=== PATIENT | male | born 1935 | race Caucasian/White ===

== ENCOUNTER 2017-09-09 14:37 | Inpatient (IN) | payer MEDICARE ==
[2017-09-09] MEDS ORDERED: Promethazine HCl 25 MG/ML VIAL IM PRN (17:55)
[2017-09-09] MEDS ORDERED: Ondansetron ODT 4 MG TAB PO PRN (17:55)
[2017-09-09] MEDS: Scopolamine 1.5 mg/72 hour Patch TD SCH (20:05)
[2017-09-09] MEDS: Acetaminophen 500 MG TAB PO PRN (20:07)
[2017-09-09] MEDS: Senokot S 8.6-50 MG TAB PO SCH (22:11)
[2017-09-10] MEDS: Levothyroxine Sodium 50 MCG TAB PO SCH (05:58)
[2017-09-10] MEDS ORDERED: predniSONE 20 MG TAB PO SCH (08:00)
[2017-09-10] MEDS: Senokot S 8.6-50 MG TAB PO SCH ×2 (10:13→22:05)
[2017-09-10] MEDS: Tamsulosin HCl 0.4 MG CAP PO SCH (10:13)
[2017-09-10] MEDS: Ascorbic Acid 500 mg Chewable Tablet PO SCH (10:13)
[2017-09-10] MEDS: Cyanocobalamin (Vitamin B-12) 1,000 MCG TAB PO SCH (10:13)
[2017-09-10] MEDS: Amlodipine 10 MG TAB PO SCH (10:14)
[2017-09-10] MEDS: Folic Acid 1 MG TAB PO SCH (10:18)
[2017-09-10] MEDS: predniSONE 20 MG TAB PO SCH (10:18)
[2017-09-10] MEDS: Saccharomyces boulardii 250 MG CAP PO SCH (10:19)
[2017-09-10] MEDS: Enoxaparin Sodium 40 MG/0.4 ML SYRINGE SC SCH (10:19)
[2017-09-10] MEDS: Dutasteride 0.5 MG CAP PO SCH ×2 (14:31→14:34)
[2017-09-10] MEDS ORDERED: Fluconazole 100 MG TAB PO SCH (15:30)
[2017-09-10] MEDS: Nystatin Cream 15 GM TUBE TOP SCH (22:04)
[2017-09-11] MEDS: Levothyroxine Sodium 50 MCG TAB PO SCH (06:37)
[2017-09-11] MEDS: predniSONE 20 MG TAB PO SCH (09:43)
[2017-09-11] MEDS: Amlodipine 10 MG TAB PO SCH (09:43)
[2017-09-11] MEDS: Cyanocobalamin (Vitamin B-12) 1,000 MCG TAB PO SCH (09:44)
[2017-09-11] MEDS: Ascorbic Acid 500 mg Chewable Tablet PO SCH (09:44)
[2017-09-11] MEDS: Fluconazole 100 MG TAB PO SCH (09:45)
[2017-09-11] MEDS: Dutasteride 0.5 MG CAP PO SCH (09:45)
[2017-09-11] MEDS: Folic Acid 1 MG TAB PO SCH (09:45)
[2017-09-11] MEDS: Senokot S 8.6-50 MG TAB PO SCH ×2 (09:46→21:11)
[2017-09-11] MEDS: Saccharomyces boulardii 250 MG CAP PO SCH (09:46)
[2017-09-11] MEDS: Tamsulosin HCl 0.4 MG CAP PO SCH (09:46)
[2017-09-11] MEDS: Enoxaparin Sodium 40 MG/0.4 ML SYRINGE SC SCH (09:47)
[2017-09-11] MEDS: Nystatin Cream 15 GM TUBE TOP SCH ×2 (09:47→21:11)
[2017-09-12 05:29] LABS: #Basophils 0.1 thou/uL (0.0-0.2); #Eosinphils 0.1 thou/uL (0.0-0.7); #Lymphocytes 1.2 thou/uL (1.20-3.40); #Monocytes 0.8 thou/uL (0.11-0.59); %Basophils 0.9 % (0.0-1.0); %Eosinophils 0.5 % (0.0-10.0); %Lymphocytes 8.3 % (21.0-51.0); %Monocytes 5.5 % (0.0-10.0); %Neutrophils 84.9 % (42.0-75.0); Hemoglobin 11.2 g/dL (14.0-18.0); Mean Corpuscular HGB CONC 33.5 g/dL (32.0-36.0); Mean Corpuscular Volume 95.6 fl (80.0-94.0); Mean Platelet Volume 4.9 fL (7.4-10.4); Platelet Count 208 thou/uL (130-400); RBC Distribution Width 15.6 % (11.5-14.5); Red Blood Cell (RBC) Count 3.51 mill/uL (4.70-6.10); White Blood Cell (WBC) Count 14.2 thou/uL (4.8-10.8)
[2017-09-12 05:45] LABS: ALT (SGPT) 10 U/L (8-55); AST (SGOT) 11 U/L (5-34); Albumin 3.1 g/dL (3.4-4.8); Alkaline Phosphatase 98 U/L (40-150); Anion Gap 15 mmol/L (10-20); BUN (Urea Nitrogen) 19 mg/dL (8.4-25.7); Bilirubin, Total 0.8 mg/dL (0.2-1.2); Calc. Creatinine Clearance 92 mL/min (70-130); Calcium 8.3 mg/dL (7.8-10.44); Carbon Dioxide 19 mmol/L (23-31); Chloride 103 mmol/L (98-107); Estimated GFR-MDRD Greater than 90; Globulin 2.2 g/dL (2.4-3.5); Glucose 98 mg/dL (83-110); Protein, Total 5.3 g/dL (5.8-8.1); Sodium 133 mmol/L (136-145)
[2017-09-12] MEDS: Levothyroxine Sodium 50 MCG TAB PO SCH (06:30)
[2017-09-12] MEDS: Enoxaparin Sodium 40 MG/0.4 ML SYRINGE SC SCH (09:11)
[2017-09-12] MEDS: Nystatin Cream 15 GM TUBE TOP SCH ×2 (09:11→22:24)
[2017-09-12] MEDS: Tamsulosin HCl 0.4 MG CAP PO SCH (09:12)
[2017-09-12] MEDS: Senokot S 8.6-50 MG TAB PO SCH ×2 (09:12→22:23)
[2017-09-12] MEDS: Saccharomyces boulardii 250 MG CAP PO SCH (09:13)
[2017-09-12] MEDS: Cyanocobalamin (Vitamin B-12) 1,000 MCG TAB PO SCH (09:13)
[2017-09-12] MEDS: Amlodipine 10 MG TAB PO SCH (09:13)
[2017-09-12] MEDS: Ascorbic Acid 500 mg Chewable Tablet PO SCH (09:14)
[2017-09-12] MEDS: predniSONE 20 MG TAB PO SCH (09:14)
[2017-09-12] MEDS: Fluconazole 100 MG TAB PO SCH (09:15)
[2017-09-12] MEDS: Dutasteride 0.5 MG CAP PO SCH (09:15)
[2017-09-12] MEDS: Folic Acid 1 MG TAB PO SCH (09:32)
[2017-09-12] MEDS: Scopolamine 1.5 mg/72 hour Patch TD SCH (18:48)
[2017-09-13] MEDS: Levothyroxine Sodium 50 MCG TAB PO SCH (06:05)
[2017-09-13] MEDS: Senokot S 8.6-50 MG TAB PO SCH ×2 (09:02→22:53)
[2017-09-13] MEDS: Folic Acid 1 MG TAB PO SCH (09:02)
[2017-09-13] MEDS: Enoxaparin Sodium 40 MG/0.4 ML SYRINGE SC SCH (09:02)
[2017-09-13] MEDS: Tamsulosin HCl 0.4 MG CAP PO SCH (09:03)
[2017-09-13] MEDS: Cyanocobalamin (Vitamin B-12) 1,000 MCG TAB PO SCH (09:03)
[2017-09-13] MEDS: Dutasteride 0.5 MG CAP PO SCH (09:03)
[2017-09-13] MEDS: Fluconazole 100 MG TAB PO SCH (09:03)
[2017-09-13] MEDS: Amlodipine 10 MG TAB PO SCH (09:03)
[2017-09-13] MEDS: predniSONE 20 MG TAB PO SCH (09:03)
[2017-09-13] MEDS: Ascorbic Acid 500 mg Chewable Tablet PO SCH (09:04)
[2017-09-13] MEDS: Nystatin Cream 15 GM TUBE TOP SCH ×2 (09:04→23:00)
[2017-09-13] MEDS: Saccharomyces boulardii 250 MG CAP PO SCH (09:04)
[2017-09-13] MEDS: Nystatin 500,000 UNITS/5 ML UDCUP SSW SCH ×2 (16:02→22:52)
--- NOTE | 2017-09-13 19:34 | RAD ---
PORTABLE CHEST: 09/13/17 An AP portable film at 0917 is compared with a 09/01/17 study. Mild cardiomegaly is about the same. There are no congestive changes or large pleural effusions today . The lungs are clear today than before. There is perhaps a little residual haziness in the right duane g base, but it still presents an improvement over time. The upper lobes are clear. IMPRESSION: Overall improvement since 09/01. POS: HOME
[2017-09-13] MEDS: Doxycycline Hyclate 100 MG TAB PO SCH (22:52)
[2017-09-13] MEDS: guaiFENesin ER 600 MG TAB PO SCH (22:53)
[2017-09-14] MEDS: Levothyroxine Sodium 50 MCG TAB PO SCH (06:50)
[2017-09-14] MEDS: Nystatin Cream 15 GM TUBE TOP SCH ×2 (09:27→22:50)
[2017-09-14] MEDS: Nystatin 500,000 UNITS/5 ML UDCUP SSW SCH ×4 (09:28→22:50)
[2017-09-14] MEDS: Saccharomyces boulardii 250 MG CAP PO SCH (09:28)
[2017-09-14] MEDS: Senokot S 8.6-50 MG TAB PO SCH ×2 (09:28→22:50)
[2017-09-14] MEDS: Enoxaparin Sodium 40 MG/0.4 ML SYRINGE SC SCH (09:28)
[2017-09-14] MEDS: Doxycycline Hyclate 100 MG TAB PO SCH ×2 (09:29→22:50)
[2017-09-14] MEDS: guaiFENesin ER 600 MG TAB PO SCH ×2 (09:29→22:50)
[2017-09-14] MEDS: Amlodipine 10 MG TAB PO SCH (09:29)
[2017-09-14] MEDS: Folic Acid 1 MG TAB PO SCH (09:29)
[2017-09-14] MEDS: Dutasteride 0.5 MG CAP PO SCH (09:30)
[2017-09-14] MEDS: predniSONE 20 MG TAB PO SCH (09:30)
[2017-09-14] MEDS: Tamsulosin HCl 0.4 MG CAP PO SCH (09:30)
[2017-09-14] MEDS: Ascorbic Acid 500 mg Chewable Tablet PO SCH (09:32)
[2017-09-14] MEDS: Cyanocobalamin (Vitamin B-12) 1,000 MCG TAB PO SCH (09:32)
[2017-09-14] MEDS: Fluconazole 100 MG TAB PO SCH (09:33)
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
[2017-09-15 05:29] LABS: Hemoglobin 11.7 g/dL (14.0-18.0); Platelet Count 200 thou/uL (130-400)
[2017-09-15 05:31] LABS: Calc. Creatinine Clearance 82 mL/min (70-130); Estimated GFR-MDRD Greater than 90
[2017-09-15] MEDS: Levothyroxine Sodium 50 MCG TAB PO SCH (06:08)
[2017-09-15] MEDS: predniSONE 20 MG TAB PO SCH (09:30)
[2017-09-15] MEDS: Amlodipine 10 MG TAB PO SCH (09:31)
[2017-09-15] MEDS: Doxycycline Hyclate 100 MG TAB PO SCH ×2 (09:31→23:25)
[2017-09-15] MEDS: Dutasteride 0.5 MG CAP PO SCH (09:32)
[2017-09-15] MEDS: Enoxaparin Sodium 40 MG/0.4 ML SYRINGE SC SCH (09:32)
[2017-09-15] MEDS: Fluconazole 100 MG TAB PO SCH (09:33)
[2017-09-15] MEDS: Nystatin 500,000 UNITS/5 ML UDCUP SSW SCH ×6 (09:33→23:30)
[2017-09-15] MEDS: guaiFENesin ER 600 MG TAB PO SCH ×2 (09:33→23:25)
[2017-09-15] MEDS: Senokot S 8.6-50 MG TAB PO SCH ×2 (09:34→23:25)
[2017-09-15] MEDS: Tamsulosin HCl 0.4 MG CAP PO SCH (09:34)
[2017-09-15] MEDS: Saccharomyces boulardii 250 MG CAP PO SCH (09:34)
[2017-09-15] MEDS: Acetaminophen 500 MG TAB PO PRN (09:46)
[2017-09-15] MEDS: Cyanocobalamin (Vitamin B-12) 1,000 MCG TAB PO SCH (09:46)
[2017-09-15] MEDS: Ascorbic Acid 500 mg Chewable Tablet PO SCH (09:47)
[2017-09-15] MEDS: Folic Acid 1 MG TAB PO SCH (09:47)
[2017-09-15] MEDS: Nystatin Cream 15 GM TUBE TOP SCH ×2 (09:50→23:30)
[2017-09-15] MEDS: Scopolamine 1.5 mg/72 hour Patch TD SCH (18:28)
[2017-09-16] MEDS: Levothyroxine Sodium 50 MCG TAB PO SCH (06:19)
[2017-09-16] MEDS: Amlodipine 10 MG TAB PO SCH (10:20)
[2017-09-16] MEDS: Tamsulosin HCl 0.4 MG CAP PO SCH (10:21)
[2017-09-16] MEDS: Doxycycline Hyclate 100 MG TAB PO SCH ×2 (10:21→23:44)
[2017-09-16] MEDS: Ascorbic Acid 500 mg Chewable Tablet PO SCH (10:21)
[2017-09-16] MEDS: Cyanocobalamin (Vitamin B-12) 1,000 MCG TAB PO SCH (10:22)
[2017-09-16] MEDS: Dutasteride 0.5 MG CAP PO SCH (10:22)
[2017-09-16] MEDS: Folic Acid 1 MG TAB PO SCH (10:22)
[2017-09-16] MEDS: guaiFENesin ER 600 MG TAB PO SCH ×2 (10:22→23:44)
[2017-09-16] MEDS: Senokot S 8.6-50 MG TAB PO SCH ×2 (10:22→23:44)
[2017-09-16] MEDS: Saccharomyces boulardii 250 MG CAP PO SCH (10:23)
[2017-09-16] MEDS: predniSONE 20 MG TAB PO SCH (10:23)
[2017-09-16] MEDS: Nystatin 500,000 UNITS/5 ML UDCUP SSW SCH ×4 (10:24→23:51)
[2017-09-16] MEDS: Fluconazole 100 MG TAB PO SCH (10:25)
[2017-09-16] MEDS: Enoxaparin Sodium 40 MG/0.4 ML SYRINGE SC SCH (10:25)
[2017-09-16] MEDS: Nystatin Cream 15 GM TUBE TOP SCH ×2 (10:27→23:51)
[2017-09-17] MEDS: Acetaminophen 500 MG TAB PO PRN (04:22)
[2017-09-17 05:32] LABS: Hemoglobin 11.6 g/dL (14.0-18.0); Platelet Count 206 thou/uL (130-400)
[2017-09-17 05:36] LABS: Calc. Creatinine Clearance 84 mL/min (70-130); Estimated GFR-MDRD Greater than 90
[2017-09-17] MEDS: Levothyroxine Sodium 50 MCG TAB PO SCH (06:15)
[2017-09-17] MEDS: Folic Acid 1 MG TAB PO SCH (10:25)
[2017-09-17] MEDS: guaiFENesin ER 600 MG TAB PO SCH ×2 (10:25→21:21)
[2017-09-17] MEDS: Nystatin 500,000 UNITS/5 ML UDCUP SSW SCH ×4 (10:25→21:20)
[2017-09-17] MEDS: Ascorbic Acid 500 mg Chewable Tablet PO SCH (10:25)
[2017-09-17] MEDS: predniSONE 20 MG TAB PO SCH (10:25)
[2017-09-17] MEDS: Tamsulosin HCl 0.4 MG CAP PO SCH (10:26)
[2017-09-17] MEDS: Cyanocobalamin (Vitamin B-12) 1,000 MCG TAB PO SCH (10:26)
[2017-09-17] MEDS: Doxycycline Hyclate 100 MG TAB PO SCH ×2 (10:26→21:21)
[2017-09-17] MEDS: Senokot S 8.6-50 MG TAB PO SCH ×2 (10:26→21:21)
[2017-09-17] MEDS: Amlodipine 10 MG TAB PO SCH (10:27)
[2017-09-17] MEDS: Dutasteride 0.5 MG CAP PO SCH (10:27)
[2017-09-17] MEDS: Enoxaparin Sodium 40 MG/0.4 ML SYRINGE SC SCH (10:28)
[2017-09-17] MEDS: Saccharomyces boulardii 250 MG CAP PO SCH (10:28)
[2017-09-17] MEDS: Nystatin Cream 15 GM TUBE TOP SCH ×2 (10:29→21:21)
[2017-09-17] MEDS ORDERED: Docusate 100 MG CAP PO PRN (17:00)
[2017-09-17] MEDS: Polyethylene Glycol 3350 17 GM Packet PO PRN (18:46)
[2017-09-18] MEDS: Levothyroxine Sodium 50 MCG TAB PO SCH (05:56)
[2017-09-18] MEDS: Nystatin 500,000 UNITS/5 ML UDCUP SSW SCH ×4 (09:31→21:31)
[2017-09-18] MEDS: Cyanocobalamin (Vitamin B-12) 1,000 MCG TAB PO SCH (09:31)
[2017-09-18] MEDS: Saccharomyces boulardii 250 MG CAP PO SCH (09:31)
[2017-09-18] MEDS: Dutasteride 0.5 MG CAP PO SCH (09:31)
[2017-09-18] MEDS: Folic Acid 1 MG TAB PO SCH (09:32)
[2017-09-18] MEDS: Ascorbic Acid 500 mg Chewable Tablet PO SCH (09:32)
[2017-09-18] MEDS: Doxycycline Hyclate 100 MG TAB PO SCH ×2 (09:32→21:30)
[2017-09-18] MEDS: guaiFENesin ER 600 MG TAB PO SCH ×2 (09:32→21:29)
[2017-09-18] MEDS: Tamsulosin HCl 0.4 MG CAP PO SCH (09:32)
[2017-09-18] MEDS: Senokot S 8.6-50 MG TAB PO SCH ×2 (09:32→21:30)
[2017-09-18] MEDS: Nystatin Cream 15 GM TUBE TOP SCH ×2 (09:33→21:34)
[2017-09-18] MEDS: Enoxaparin Sodium 40 MG/0.4 ML SYRINGE SC SCH (09:34)
[2017-09-18] MEDS: Amlodipine 10 MG TAB PO SCH (10:13)
[2017-09-18] MEDS: Scopolamine 1.5 mg/72 hour Patch TD SCH (18:02)
[2017-09-19] MEDS: Levothyroxine Sodium 50 MCG TAB PO SCH (05:54)
[2017-09-19 06:04] LABS: Hemoglobin 12.8 g/dL (14.0-18.0); Platelet Count 231 thou/uL (130-400)
[2017-09-19 06:09] LABS: Calc. Creatinine Clearance 80 mL/min (70-130); Estimated GFR-MDRD Greater than 90
[2017-09-19] MEDS: Nystatin 500,000 UNITS/5 ML UDCUP SSW SCH ×4 (10:12→20:38)
[2017-09-19] MEDS: Senokot S 8.6-50 MG TAB PO SCH ×2 (10:12→20:38)
[2017-09-19] MEDS: Enoxaparin Sodium 40 MG/0.4 ML SYRINGE SC SCH (10:12)
[2017-09-19] MEDS: Tamsulosin HCl 0.4 MG CAP PO SCH (10:13)
[2017-09-19] MEDS: Dutasteride 0.5 MG CAP PO SCH (10:13)
[2017-09-19] MEDS: guaiFENesin ER 600 MG TAB PO SCH ×2 (10:13→20:38)
[2017-09-19] MEDS: Folic Acid 1 MG TAB PO SCH (10:13)
[2017-09-19] MEDS: Amlodipine 10 MG TAB PO SCH (10:13)
[2017-09-19] MEDS: Doxycycline Hyclate 100 MG TAB PO SCH ×2 (10:13→20:38)
[2017-09-19] MEDS: Cyanocobalamin (Vitamin B-12) 1,000 MCG TAB PO SCH (10:14)
[2017-09-19] MEDS: Ascorbic Acid 500 mg Chewable Tablet PO SCH (10:15)
[2017-09-19] MEDS: Nystatin Cream 15 GM TUBE TOP SCH ×2 (10:16→20:40)
[2017-09-19] MEDS: Saccharomyces boulardii 250 MG CAP PO SCH (10:16)
[2017-09-19] MEDS: Polyethylene Glycol 3350 17 GM Packet PO PRN (10:24)
[2017-09-19] MEDS: Calcium Carbonate 500 MG ChewTAB PO SCH (20:38)
[2017-09-20] MEDS: Levothyroxine Sodium 50 MCG TAB PO SCH (06:31)
[2017-09-20] MEDS: Nystatin 500,000 UNITS/5 ML UDCUP SSW SCH ×4 (09:12→21:26)
[2017-09-20] MEDS: Nystatin Cream 15 GM TUBE TOP SCH (09:12)
[2017-09-20] MEDS: Enoxaparin Sodium 40 MG/0.4 ML SYRINGE SC SCH (09:12)
[2017-09-20] MEDS: Doxycycline Hyclate 100 MG TAB PO SCH ×2 (09:13→21:25)
[2017-09-20] MEDS: Ascorbic Acid 500 mg Chewable Tablet PO SCH ×2 (09:13→18:39)
[2017-09-20] MEDS: Cyanocobalamin (Vitamin B-12) 1,000 MCG TAB PO SCH ×2 (09:13→18:39)
[2017-09-20] MEDS: Saccharomyces boulardii 250 MG CAP PO SCH (09:13)
[2017-09-20] MEDS: Senokot S 8.6-50 MG TAB PO SCH ×2 (09:14→21:25)
[2017-09-20] MEDS: Tamsulosin HCl 0.4 MG CAP PO SCH (09:14)
[2017-09-20] MEDS: guaiFENesin ER 600 MG TAB PO SCH ×2 (09:14→21:25)
[2017-09-20] MEDS: Dutasteride 0.5 MG CAP PO SCH (09:14)
[2017-09-20] MEDS: Amlodipine 10 MG TAB PO SCH (09:14)
[2017-09-20] MEDS: Folic Acid 1 MG TAB PO SCH (09:15)
[2017-09-20] MEDS: Calcium Carbonate 500 MG ChewTAB PO SCH ×2 (09:15→21:25)
[2017-09-20] MEDS: Acetaminophen 500 MG TAB PO PRN (13:14)
[2017-09-21] MEDS: Levothyroxine Sodium 50 MCG TAB PO SCH (06:47)
[2017-09-21 06:52] LABS: Calc. Creatinine Clearance 76 mL/min (70-130); Estimated GFR-MDRD Greater than 90
[2017-09-21 07:15] LABS: Hemoglobin 12.1 g/dL (14.0-18.0); Platelet Count 212 thou/uL (130-400)
[2017-09-21] MEDS: Nystatin 500,000 UNITS/5 ML UDCUP SSW SCH ×5 (08:38→20:37)
[2017-09-21] MEDS: Enoxaparin Sodium 40 MG/0.4 ML SYRINGE SC SCH (08:38)
[2017-09-21] MEDS: Folic Acid 1 MG TAB PO SCH (08:39)
[2017-09-21] MEDS: Saccharomyces boulardii 250 MG CAP PO SCH (08:39)
[2017-09-21] MEDS: Senokot S 8.6-50 MG TAB PO SCH ×2 (08:39→20:36)
[2017-09-21] MEDS: Amlodipine 10 MG TAB PO SCH (08:39)
[2017-09-21] MEDS: Doxycycline Hyclate 100 MG TAB PO SCH ×2 (08:39→20:36)
[2017-09-21] MEDS: Dutasteride 0.5 MG CAP PO SCH (08:40)
[2017-09-21] MEDS: Calcium Carbonate 500 MG ChewTAB PO SCH ×2 (08:40→20:36)
[2017-09-21] MEDS: Tamsulosin HCl 0.4 MG CAP PO SCH (08:40)
[2017-09-21] MEDS: Cyanocobalamin (Vitamin B-12) 1,000 MCG TAB PO SCH (08:41)
[2017-09-21] MEDS: Ascorbic Acid 500 mg Chewable Tablet PO SCH (08:42)
[2017-09-21] MEDS: Scopolamine 1.5 mg/72 hour Patch TD SCH (18:03)
[2017-09-22] MEDS: Levothyroxine Sodium 50 MCG TAB PO SCH (06:06)
[2017-09-22] MEDS: Nystatin 500,000 UNITS/5 ML UDCUP SSW SCH ×4 (09:32→20:56)
[2017-09-22] MEDS: Saccharomyces boulardii 250 MG CAP PO SCH (09:32)
[2017-09-22] MEDS: Amlodipine 10 MG TAB PO SCH (09:32)
[2017-09-22] MEDS: Enoxaparin Sodium 40 MG/0.4 ML SYRINGE SC SCH (09:32)
[2017-09-22] MEDS: Senokot S 8.6-50 MG TAB PO SCH ×2 (09:32→20:56)
[2017-09-22] MEDS: Dutasteride 0.5 MG CAP PO SCH (09:33)
[2017-09-22] MEDS: Tamsulosin HCl 0.4 MG CAP PO SCH (09:33)
[2017-09-22] MEDS: Doxycycline Hyclate 100 MG TAB PO SCH ×2 (09:33→20:56)
[2017-09-22] MEDS: Folic Acid 1 MG TAB PO SCH (09:33)
[2017-09-22] MEDS: Ascorbic Acid 500 mg Chewable Tablet PO SCH (10:43)
[2017-09-22] MEDS: Cyanocobalamin (Vitamin B-12) 1,000 MCG TAB PO SCH (10:44)
[2017-09-22] MEDS: Calcium Carbonate 500 MG ChewTAB PO SCH ×2 (10:44→20:56)
[2017-09-23] MEDS: Levothyroxine Sodium 50 MCG TAB PO SCH (05:41)
[2017-09-23 06:36] LABS: Hemoglobin 11.9 g/dL (14.0-18.0); Platelet Count 212 thou/uL (130-400)
[2017-09-23 06:45] LABS: Calc. Creatinine Clearance 77 mL/min (70-130); Estimated GFR-MDRD Greater than 90
[2017-09-23] MEDS: Ascorbic Acid 500 mg Chewable Tablet PO SCH (10:00)
[2017-09-23] MEDS: Amlodipine 10 MG TAB PO SCH (10:01)
[2017-09-23] MEDS: Saccharomyces boulardii 250 MG CAP PO SCH (10:02)
[2017-09-23] MEDS: Doxycycline Hyclate 100 MG TAB PO SCH ×2 (10:02→20:43)
[2017-09-23] MEDS: Nystatin 500,000 UNITS/5 ML UDCUP SSW SCH ×3 (10:02→16:19)
[2017-09-23] MEDS: Dutasteride 0.5 MG CAP PO SCH (10:02)
[2017-09-23] MEDS: Senokot S 8.6-50 MG TAB PO SCH ×2 (10:02→20:43)
[2017-09-23] MEDS: Cyanocobalamin (Vitamin B-12) 1,000 MCG TAB PO SCH (10:02)
[2017-09-23] MEDS: Folic Acid 1 MG TAB PO SCH (10:03)
[2017-09-23] MEDS: Tamsulosin HCl 0.4 MG CAP PO SCH (10:03)
[2017-09-23] MEDS: Calcium Carbonate 500 MG ChewTAB PO SCH ×2 (10:04→20:46)
[2017-09-23] MEDS: Enoxaparin Sodium 40 MG/0.4 ML SYRINGE SC SCH (10:04)
[2017-09-24] MEDS: Levothyroxine Sodium 50 MCG TAB PO SCH (06:20)
[2017-09-24] MEDS: Dutasteride 0.5 MG CAP PO SCH (09:20)
[2017-09-24] MEDS: Calcium Carbonate 500 MG ChewTAB PO SCH ×2 (09:20→21:27)
[2017-09-24] MEDS: Cyanocobalamin (Vitamin B-12) 1,000 MCG TAB PO SCH (09:21)
[2017-09-24] MEDS: Ascorbic Acid 500 mg Chewable Tablet PO SCH (09:21)
[2017-09-24] MEDS: Folic Acid 1 MG TAB PO SCH (09:21)
[2017-09-24] MEDS: Saccharomyces boulardii 250 MG CAP PO SCH (09:21)
[2017-09-24] MEDS: Amlodipine 10 MG TAB PO SCH (09:22)
[2017-09-24] MEDS: Senokot S 8.6-50 MG TAB PO SCH ×2 (09:22→21:27)
[2017-09-24] MEDS: Tamsulosin HCl 0.4 MG CAP PO SCH (09:22)
[2017-09-24] MEDS: Enoxaparin Sodium 40 MG/0.4 ML SYRINGE SC SCH (09:23)
[2017-09-25] MEDS: Levothyroxine Sodium 50 MCG TAB PO SCH (05:37)
[2017-09-25 06:19] LABS: Calc. Creatinine Clearance 78 mL/min (70-130); Estimated GFR-MDRD Greater than 90
[2017-09-25 07:19] LABS: Hemoglobin 11.9 g/dL (14.0-18.0); Platelet Count 204 thou/uL (130-400)
[2017-09-25] MEDS: Enoxaparin Sodium 40 MG/0.4 ML SYRINGE SC SCH (08:21)
[2017-09-25] MEDS: Senokot S 8.6-50 MG TAB PO SCH ×2 (08:22→21:58)
[2017-09-25] MEDS: Calcium Carbonate 500 MG ChewTAB PO SCH ×2 (08:22→21:57)
[2017-09-25] MEDS: Amlodipine 10 MG TAB PO SCH (08:23)
[2017-09-25] MEDS: Folic Acid 1 MG TAB PO SCH (08:23)
[2017-09-25] MEDS: Cyanocobalamin (Vitamin B-12) 1,000 MCG TAB PO SCH (08:24)
[2017-09-25] MEDS: Ascorbic Acid 500 mg Chewable Tablet PO SCH (08:24)
[2017-09-25] MEDS: Dutasteride 0.5 MG CAP PO SCH (08:25)
[2017-09-25] MEDS: Saccharomyces boulardii 250 MG CAP PO SCH (08:25)
[2017-09-25] MEDS: Tamsulosin HCl 0.4 MG CAP PO SCH (08:25)
[2017-09-26] MEDS: Levothyroxine Sodium 50 MCG TAB PO SCH (05:56)
[2017-09-26] MEDS: Calcium Carbonate 500 MG ChewTAB PO SCH ×2 (10:17→20:48)
[2017-09-26] MEDS: Amlodipine 10 MG TAB PO SCH (10:18)
[2017-09-26] MEDS: Senokot S 8.6-50 MG TAB PO SCH ×2 (10:18→20:47)
[2017-09-26] MEDS: Folic Acid 1 MG TAB PO SCH (10:18)
[2017-09-26] MEDS: Dutasteride 0.5 MG CAP PO SCH (10:18)
[2017-09-26] MEDS: Tamsulosin HCl 0.4 MG CAP PO SCH (10:18)
[2017-09-26] MEDS: Saccharomyces boulardii 250 MG CAP PO SCH (10:18)
[2017-09-26] MEDS: Cyanocobalamin (Vitamin B-12) 1,000 MCG TAB PO SCH (10:19)
[2017-09-26] MEDS: Ascorbic Acid 500 mg Chewable Tablet PO SCH (10:20)
[2017-09-26] MEDS: Enoxaparin Sodium 40 MG/0.4 ML SYRINGE SC SCH (10:34)
[2017-09-26] MEDS: Acetaminophen 500 MG TAB PO PRN ×2 (17:14→20:56)
[2017-09-27 05:30] LABS: Hemoglobin 11.4 g/dL (14.0-18.0); Platelet Count 185 thou/uL (130-400)
[2017-09-27 05:47] LABS: Calc. Creatinine Clearance 88 mL/min (70-130); Estimated GFR-MDRD Greater than 90
[2017-09-27] MEDS: Levothyroxine Sodium 50 MCG TAB PO SCH (05:52)
[2017-09-27] MEDS: Ascorbic Acid 500 mg Chewable Tablet PO SCH (10:37)
[2017-09-27] MEDS: Cyanocobalamin (Vitamin B-12) 1,000 MCG TAB PO SCH (10:37)
[2017-09-27] MEDS: Calcium Carbonate 500 MG ChewTAB PO SCH ×2 (10:37→21:30)
[2017-09-27] MEDS: Tamsulosin HCl 0.4 MG CAP PO SCH (10:37)
[2017-09-27] MEDS: Saccharomyces boulardii 250 MG CAP PO SCH (10:37)
[2017-09-27] MEDS: Amlodipine 5 MG TAB PO SCH (10:38)
[2017-09-27] MEDS: Dutasteride 0.5 MG CAP PO SCH (10:39)
[2017-09-27] MEDS: Folic Acid 1 MG TAB PO SCH (10:39)
[2017-09-27] MEDS: Enoxaparin Sodium 40 MG/0.4 ML SYRINGE SC SCH (10:39)
[2017-09-27] MEDS: Senokot S 8.6-50 MG TAB PO SCH ×2 (10:39→21:30)
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
[2017-09-27] MEDS: Artificial Tear Sol 15 ML BOT EA EYE PRN (21:30)
[2017-09-28] MEDS: Levothyroxine Sodium 50 MCG TAB PO SCH (06:26)
[2017-09-28] MEDS: Ascorbic Acid 500 mg Chewable Tablet PO SCH (08:37)
[2017-09-28] MEDS: Cyanocobalamin (Vitamin B-12) 1,000 MCG TAB PO SCH (08:37)
[2017-09-28] MEDS: Folic Acid 1 MG TAB PO SCH (08:38)
[2017-09-28] MEDS: Dutasteride 0.5 MG CAP PO SCH (08:38)
[2017-09-28] MEDS: Tamsulosin HCl 0.4 MG CAP PO SCH (08:38)
[2017-09-28] MEDS: Senokot S 8.6-50 MG TAB PO SCH ×2 (08:39→21:39)
[2017-09-28] MEDS: Amlodipine 5 MG TAB PO SCH (08:39)
[2017-09-28] MEDS: Saccharomyces boulardii 250 MG CAP PO SCH (08:40)
[2017-09-28] MEDS: Enoxaparin Sodium 40 MG/0.4 ML SYRINGE SC SCH (08:40)
[2017-09-28] MEDS: Calcium Carbonate 500 MG ChewTAB PO SCH ×2 (08:46→21:39)
[2017-09-28] MEDS: Artificial Tear Sol 15 ML BOT EA EYE PRN (21:39)
[2017-09-29 05:19] LABS: Hemoglobin 11.5 g/dL (14.0-18.0); Platelet Count 188 thou/uL (130-400)
[2017-09-29] MEDS: Levothyroxine Sodium 50 MCG TAB PO SCH (05:35)
[2017-09-29 05:36] LABS: Calc. Creatinine Clearance 76 mL/min (70-130); Estimated GFR-MDRD Greater than 90
[2017-09-29] MEDS: Cyanocobalamin (Vitamin B-12) 1,000 MCG TAB PO SCH (09:20)
[2017-09-29] MEDS: Enoxaparin Sodium 40 MG/0.4 ML SYRINGE SC SCH (09:20)
[2017-09-29] MEDS: Ascorbic Acid 500 mg Chewable Tablet PO SCH (09:21)
[2017-09-29] MEDS: Saccharomyces boulardii 250 MG CAP PO SCH (09:22)
[2017-09-29] MEDS: Folic Acid 1 MG TAB PO SCH (09:22)
[2017-09-29] MEDS: Dutasteride 0.5 MG CAP PO SCH (09:22)
[2017-09-29] MEDS: Amlodipine 5 MG TAB PO SCH (09:22)
[2017-09-29] MEDS: Tamsulosin HCl 0.4 MG CAP PO SCH (09:22)
[2017-09-29] MEDS: Senokot S 8.6-50 MG TAB PO SCH ×2 (09:22→20:21)
[2017-09-29] MEDS: Calcium Carbonate 500 MG ChewTAB PO SCH ×2 (09:24→20:21)
[2017-09-29] MEDS: Artificial Tear Sol 15 ML BOT EA EYE PRN (20:21)
[2017-09-29] MEDS: Acetaminophen 500 MG TAB PO PRN (20:21)
[2017-09-30] MEDS: Levothyroxine Sodium 50 MCG TAB PO SCH (06:06)
[2017-09-30] MEDS ORDERED: Calcium Carbonate 500 MG ChewTAB PO PRN (08:10)
[2017-09-30] MEDS: Amlodipine 5 MG TAB PO SCH (08:23)
[2017-09-30] MEDS: Dutasteride 0.5 MG CAP PO SCH (08:27)
[2017-09-30] MEDS: Cyanocobalamin (Vitamin B-12) 1,000 MCG TAB PO SCH (08:27)
[2017-09-30] MEDS: Folic Acid 1 MG TAB PO SCH (08:28)
[2017-09-30] MEDS: Saccharomyces boulardii 250 MG CAP PO SCH (08:28)
[2017-09-30] MEDS: Senokot S 8.6-50 MG TAB PO SCH ×2 (08:29→20:16)
[2017-09-30] MEDS: Enoxaparin Sodium 40 MG/0.4 ML SYRINGE SC SCH (08:30)
[2017-09-30] MEDS: Tamsulosin HCl 0.4 MG CAP PO SCH (08:30)
[2017-09-30] MEDS: Ascorbic Acid 500 mg Chewable Tablet PO SCH (09:00)
[2017-09-30] MEDS: Artificial Tear Sol 15 ML BOT EA EYE PRN (20:16)
[2017-10-01] MEDS: Acetaminophen 500 MG TAB PO PRN ×4 (03:21→21:58)
[2017-10-01 05:19] LABS: Hemoglobin 10.7 g/dL (14.0-18.0); Platelet Count 201 thou/uL (130-400)
[2017-10-01 05:27] LABS: Calc. Creatinine Clearance 79 mL/min (70-130); Estimated GFR-MDRD Greater than 90
[2017-10-01] MEDS: Levothyroxine Sodium 50 MCG TAB PO SCH (06:08)
[2017-10-01] MEDS: Ascorbic Acid 500 mg Chewable Tablet PO SCH (08:48)
[2017-10-01] MEDS: Folic Acid 1 MG TAB PO SCH (08:48)
[2017-10-01] MEDS: Cyanocobalamin (Vitamin B-12) 1,000 MCG TAB PO SCH (08:49)
[2017-10-01] MEDS: Saccharomyces boulardii 250 MG CAP PO SCH (08:50)
[2017-10-01] MEDS: Tamsulosin HCl 0.4 MG CAP PO SCH (08:50)
[2017-10-01] MEDS: Dutasteride 0.5 MG CAP PO SCH (08:50)
[2017-10-01] MEDS: Amlodipine 5 MG TAB PO SCH (08:50)
[2017-10-01] MEDS: Artificial Tear Sol 15 ML BOT EA EYE PRN ×2 (08:52→21:58)
[2017-10-01] MEDS: Enoxaparin Sodium 40 MG/0.4 ML SYRINGE SC SCH (09:02)
[2017-10-01] MEDS: Senokot S 8.6-50 MG TAB PO SCH ×2 (09:11→21:58)
[2017-10-02] MEDS: Levothyroxine Sodium 50 MCG TAB PO SCH (05:47)
[2017-10-02] MEDS: Cyanocobalamin (Vitamin B-12) 1,000 MCG TAB PO SCH (10:11)
[2017-10-02] MEDS: Ascorbic Acid 500 mg Chewable Tablet PO SCH (10:11)
[2017-10-02] MEDS: Folic Acid 1 MG TAB PO SCH (10:11)
[2017-10-02] MEDS: Dutasteride 0.5 MG CAP PO SCH (10:12)
[2017-10-02] MEDS: Saccharomyces boulardii 250 MG CAP PO SCH (10:12)
[2017-10-02] MEDS: Senokot S 8.6-50 MG TAB PO SCH ×2 (10:12→20:48)
[2017-10-02] MEDS: Tamsulosin HCl 0.4 MG CAP PO SCH (10:12)
[2017-10-02] MEDS: Amlodipine 5 MG TAB PO SCH (10:13)
[2017-10-02] MEDS: Enoxaparin Sodium 40 MG/0.4 ML SYRINGE SC SCH (10:14)
[2017-10-02] MEDS: Acetaminophen 500 MG TAB PO PRN (20:48)
[2017-10-03 05:52] LABS: Calc. Creatinine Clearance 82 mL/min (70-130); Estimated GFR-MDRD Greater than 90
[2017-10-03 06:03] LABS: Hemoglobin 10.9 g/dL (14.0-18.0); Platelet Count 210 thou/uL (130-400)
[2017-10-03] MEDS: Levothyroxine Sodium 50 MCG TAB PO SCH (06:03)
[2017-10-03] MEDS: Enoxaparin Sodium 40 MG/0.4 ML SYRINGE SC SCH (08:38)
[2017-10-03] MEDS: Acetaminophen 500 MG TAB PO PRN ×3 (08:38→20:58)
[2017-10-03] MEDS: Amlodipine 5 MG TAB PO SCH (08:39)
[2017-10-03] MEDS: Tamsulosin HCl 0.4 MG CAP PO SCH (08:40)
[2017-10-03] MEDS: Senokot S 8.6-50 MG TAB PO SCH ×2 (08:40→20:58)
[2017-10-03] MEDS: Folic Acid 1 MG TAB PO SCH (08:40)
[2017-10-03] MEDS: Saccharomyces boulardii 250 MG CAP PO SCH (08:40)
[2017-10-03] MEDS: Dutasteride 0.5 MG CAP PO SCH (08:41)
[2017-10-03] MEDS: Artificial Tear Sol 15 ML BOT EA EYE PRN (08:44)
[2017-10-03] MEDS: Ascorbic Acid 500 mg Chewable Tablet PO SCH (08:48)
[2017-10-03] MEDS: Cyanocobalamin (Vitamin B-12) 1,000 MCG TAB PO SCH (08:49)
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
[2017-10-04] MEDS: Levothyroxine Sodium 50 MCG TAB PO SCH (06:10)
[2017-10-04] MEDS: Artificial Tear Sol 15 ML BOT EA EYE PRN (06:16)
[2017-10-04] MEDS: Senokot S 8.6-50 MG TAB PO SCH ×2 (08:10→20:29)
[2017-10-04] MEDS: Ascorbic Acid 500 mg Chewable Tablet PO SCH (08:10)
[2017-10-04] MEDS: Saccharomyces boulardii 250 MG CAP PO SCH (08:10)
[2017-10-04] MEDS: Amlodipine 5 MG TAB PO SCH (08:11)
[2017-10-04] MEDS: Cyanocobalamin (Vitamin B-12) 1,000 MCG TAB PO SCH (08:11)
[2017-10-04] MEDS: Tamsulosin HCl 0.4 MG CAP PO SCH (08:11)
[2017-10-04] MEDS: Dutasteride 0.5 MG CAP PO SCH (08:11)
[2017-10-04] MEDS: Folic Acid 1 MG TAB PO SCH (08:11)
[2017-10-04] MEDS: Acetaminophen 500 MG TAB PO PRN ×3 (08:11→21:30)
[2017-10-04] MEDS: Enoxaparin Sodium 40 MG/0.4 ML SYRINGE SC SCH (08:12)
[2017-10-05 05:48] LABS: Hemoglobin 11.4 g/dL (14.0-18.0); Platelet Count 220 thou/uL (130-400)
[2017-10-05 05:52] LABS: Calc. Creatinine Clearance 73 mL/min (70-130); Estimated GFR-MDRD Greater than 90
[2017-10-05] MEDS: Levothyroxine Sodium 50 MCG TAB PO SCH (06:07)
[2017-10-05] MEDS: Enoxaparin Sodium 40 MG/0.4 ML SYRINGE SC SCH (08:22)
[2017-10-05] MEDS: Folic Acid 1 MG TAB PO SCH (08:22)
[2017-10-05] MEDS: Saccharomyces boulardii 250 MG CAP PO SCH (08:23)
[2017-10-05] MEDS: Senokot S 8.6-50 MG TAB PO SCH (08:23)
[2017-10-05] MEDS: Dutasteride 0.5 MG CAP PO SCH (08:23)
[2017-10-05] MEDS: Tamsulosin HCl 0.4 MG CAP PO SCH (08:23)
[2017-10-05] MEDS: Amlodipine 5 MG TAB PO SCH (08:24)
[2017-10-05] MEDS: Ascorbic Acid 500 mg Chewable Tablet PO SCH (08:26)
[2017-10-05] MEDS: Cyanocobalamin (Vitamin B-12) 1,000 MCG TAB PO SCH (08:26)
[2017-10-05] MEDS: Acetaminophen 500 MG TAB PO PRN ×2 (08:33→19:20)
[2017-10-05] MEDS: Artificial Tear Sol 15 ML BOT EA EYE PRN (08:33)
[2017-10-06] MEDS: Levothyroxine Sodium 50 MCG TAB PO SCH (06:19)
[2017-10-06] MEDS: Artificial Tear Sol 15 ML BOT EA EYE PRN (06:26)
[2017-10-06] MEDS: Dutasteride 0.5 MG CAP PO SCH (09:19)
[2017-10-06] MEDS: Enoxaparin Sodium 40 MG/0.4 ML SYRINGE SC SCH (09:19)
[2017-10-06] MEDS: Amlodipine 5 MG TAB PO SCH (09:19)
[2017-10-06] MEDS: Saccharomyces boulardii 250 MG CAP PO SCH (09:20)
[2017-10-06] MEDS: Tamsulosin HCl 0.4 MG CAP PO SCH (09:20)
[2017-10-06] MEDS: Folic Acid 1 MG TAB PO SCH (09:20)
[2017-10-06 11:22] LABS: #Basophils 0.1 thou/uL (0.0-0.2); #Eosinphils 0.1 thou/uL (0.0-0.7); #Lymphocytes 1.7 thou/uL (1.20-3.40); #Monocytes 0.6 thou/uL (0.11-0.59); #Neutrophils 3.7 thou/uL (1.40-6.50); %Basophils 0.9 % (0.0-1.0); %Eosinophils 1.5 % (0.0-10.0); %Lymphocytes 27.7 % (21.0-51.0); %Monocytes 9.7 % (0.0-10.0); %Neutrophils 60.3 % (42.0-75.0); Hemoglobin 11.8 g/dL (14.0-18.0); Mean Corpuscular Hemoglobin 32.1 pg (27.0-31.0); Mean Corpuscular Volume 97.3 fl (80.0-94.0); Mean Platelet Volume 5.2 fL (7.4-10.4); Platelet Count 264 thou/uL (130-400); RBC Distribution Width 15.2 % (11.5-14.5); Red Blood Cell (RBC) Count 3.68 mill/uL (4.70-6.10); White Blood Cell (WBC) Count 6.2 thou/uL (4.8-10.8)
--- NOTE | 2017-10-06 18:58 | RAD ---
CHEST TWO VIEWS: Date: 10-06-17 Comparison: 09-13-17 FINDINGS: There is a right lower lobe infiltrate which was not present before consistent with pneumonia. COPD p redominates. The left lung is clear. The heart size is normal. There are no congestive changes or lar ge pleural effusions. Calcification is seen in the aorta. IMPRESSION: 1. Right lower lobe infiltrate consistent with pneumonia. This needs to be followed up to complete re solution to ensure there is no other pathology here. 2. COPD. POS: HOME
[2017-10-06] MEDS ORDERED: Sulfameth/Trimethoprim DS 800-160mg TAB PO SCH (21:00)
[2017-10-06] MEDS: TAZOBACTAM IVPB SCH (21:59)
[2017-10-06] MEDS: ADMIXTURE FEE IVPB SCH (21:59)
[2017-10-06] MEDS: PIPERACILLIN IVPB SCH (21:59)
[2017-10-06] MEDS ORDERED: Piperacillin/Tazobactam 2.25 GM in Sodium Chloride 0.9% 100 ML IVPB SCH (22:00)
[2017-10-06] MEDS: Sodium Chloride 0.9% 100 ML IVPB SCH (22:00)
[2017-10-06] MEDS: Vancomycin HCl 1 GM in Sodium Chloride 0.9% 250 ML 250 ML IVPB SCH (22:29)
[2017-10-07] MEDS: Acetaminophen 500 MG TAB PO PRN ×3 (01:25→08:41)
[2017-10-07] MEDS: ADMIXTURE FEE IVPB SCH ×3 (05:47→21:38)
[2017-10-07] MEDS: TAZOBACTAM IVPB SCH ×3 (05:47→21:38)
[2017-10-07] MEDS: PIPERACILLIN IVPB SCH ×3 (05:47→21:38)
[2017-10-07] MEDS: Sodium Chloride 0.9% 100 ML IVPB SCH ×3 (05:49→22:52)
[2017-10-07] MEDS: Levothyroxine Sodium 50 MCG TAB PO SCH (06:00)
[2017-10-07 06:03] LABS: #Basophils 0.1 thou/uL (0.0-0.2); #Eosinphils 0.1 thou/uL (0.0-0.7); #Lymphocytes 0.6 thou/uL (1.20-3.40); #Monocytes 0.4 thou/uL (0.11-0.59); #Neutrophils 4.1 thou/uL (1.40-6.50); %Eosinophils 1.6 % (0.0-10.0); %Lymphocytes 11.8 % (21.0-51.0); %Monocytes 7.3 % (0.0-10.0); %Neutrophils 78.2 % (42.0-75.0); Hemoglobin 10.5 g/dL (14.0-18.0); Mean Corpuscular HGB CONC 33.6 g/dL (32.0-36.0); Mean Corpuscular Hemoglobin 32.4 pg (27.0-31.0); Mean Corpuscular Volume 96.6 fl (80.0-94.0); Mean Platelet Volume 5.8 fL (7.4-10.4); Platelet Count 199 thou/uL (130-400); Red Blood Cell (RBC) Count 3.25 mill/uL (4.70-6.10); White Blood Cell (WBC) Count 5.2 thou/uL (4.8-10.8)
[2017-10-07 06:04] LABS: ALT (SGPT) 12 U/L (8-55); AST (SGOT) 10 U/L (5-34); Albumin 2.7 g/dL (3.4-4.8); Alkaline Phosphatase 161 U/L (40-150); Anion Gap 12 mmol/L (10-20); BUN (Urea Nitrogen) 12 mg/dL (8.4-25.7); Bilirubin, Total 0.3 mg/dL (0.2-1.2); Calc. Creatinine Clearance 79 mL/min (70-130); Calcium 8.5 mg/dL (7.8-10.44); Carbon Dioxide 23 mmol/L (23-31); Chloride 106 mmol/L (98-107); Estimated GFR-MDRD Greater than 90; Globulin 2.4 g/dL (2.4-3.5); Glucose 113 mg/dL (83-110); Potassium 3.8 mmol/L (3.5-5.1); Protein, Total 5.1 g/dL (5.8-8.1); Sodium 137 mmol/L (136-145)
[2017-10-07] MEDS: Amlodipine 5 MG TAB PO SCH (08:21)
[2017-10-07] MEDS: Dutasteride 0.5 MG CAP PO SCH (08:23)
[2017-10-07] MEDS: Tamsulosin HCl 0.4 MG CAP PO SCH (08:23)
[2017-10-07] MEDS: Saccharomyces boulardii 250 MG CAP PO SCH (08:23)
[2017-10-07] MEDS: Enoxaparin Sodium 40 MG/0.4 ML SYRINGE SC SCH (08:24)
[2017-10-07] MEDS: Folic Acid 1 MG TAB PO SCH (08:24)
[2017-10-07] MEDS: Vancomycin HCl 1 GM in Sodium Chloride 0.9% 250 ML 250 ML IVPB SCH ×2 (09:49→20:08)
[2017-10-08] MEDS: Levothyroxine Sodium 50 MCG TAB PO SCH (05:49)
[2017-10-08] MEDS: ADMIXTURE FEE IVPB SCH (05:54)
[2017-10-08] MEDS: Sodium Chloride 0.9% 100 ML IVPB SCH (05:54)
[2017-10-08] MEDS: TAZOBACTAM IVPB SCH ×3 (05:54→22:24)
[2017-10-08] MEDS: PIPERACILLIN IVPB SCH ×3 (05:54→22:24)
[2017-10-08 06:16] LABS: ALT (SGPT) 9 U/L (8-55); AST (SGOT) 8 U/L (5-34); Albumin 2.6 g/dL (3.4-4.8); Alkaline Phosphatase 158 U/L (40-150); Anion Gap 11 mmol/L (10-20); BUN (Urea Nitrogen) 8 mg/dL (8.4-25.7); Bilirubin, Total 0.2 mg/dL (0.2-1.2); Calc. Creatinine Clearance 84 mL/min (70-130); Calcium 8.2 mg/dL (7.8-10.44); Carbon Dioxide 23 mmol/L (23-31); Chloride 110 mmol/L (98-107); Estimated GFR-MDRD Greater than 90; Globulin 2.2 g/dL (2.4-3.5); Glucose 110 mg/dL (83-110); Potassium 3.7 mmol/L (3.5-5.1); Protein, Total 4.8 g/dL (5.8-8.1); Sodium 140 mmol/L (136-145)
[2017-10-08 08:24] LABS: Vancomycin, Trough 15.6 ug/mL
[2017-10-08] MEDS: Tamsulosin HCl 0.4 MG CAP PO SCH (08:41)
[2017-10-08] MEDS: Amlodipine 5 MG TAB PO SCH (08:41)
[2017-10-08] MEDS: Dutasteride 0.5 MG CAP PO SCH (08:41)
[2017-10-08] MEDS: Saccharomyces boulardii 250 MG CAP PO SCH (08:42)
[2017-10-08] MEDS: Folic Acid 1 MG TAB PO SCH (08:42)
[2017-10-08] MEDS: Enoxaparin Sodium 40 MG/0.4 ML SYRINGE SC SCH (08:43)
[2017-10-08] MEDS: Vancomycin HCl 1 GM in Sodium Chloride 0.9% 250 ML 250 ML IVPB SCH ×2 (08:44→20:32)
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
[2017-10-08] MEDS: Mometasone/Formoterol 60 PUFF AER INH SCH ×3 (09:14→18:09)
[2017-10-08] MEDS: SODIUM CHLORIDE 0.9% IVPB SCH ×2 (15:44→22:24)
--- NOTE | 2017-10-08 22:39 | RAD ---
RIGHT WRIST THREE VIEWS 10/08/17 No prior films were available for comparison. There has been an ORIF of fractures of the distal radiu s as well as pinning of multiple carpal bones and a screw placed in the scaphoid. There is probably a fracture at the base of the fifth metacarpal as well. Without the benefit of the prior films, I do n ot know if the position of any of the orthopedic hardware has changed. The basic carpal relations are normal. There is considerable soft tissue swelling of the wrist, particularly dorsally. I do not se e any acute change however. IMPRESSION: Considerable swelling and postoperative changes. No gross acute findings otherwise. POS: HOME
[2017-10-09 05:16] LABS: Hemoglobin 10.6 g/dL (14.0-18.0); Platelet Count 191 thou/uL (130-400)
[2017-10-09 05:25] LABS: Calc. Creatinine Clearance 83 mL/min (70-130); Estimated GFR-MDRD Greater than 90
[2017-10-09] MEDS: TAZOBACTAM IVPB SCH ×3 (05:55→22:01)
[2017-10-09] MEDS: SODIUM CHLORIDE 0.9% IVPB SCH ×3 (05:55→22:01)
[2017-10-09] MEDS: PIPERACILLIN IVPB SCH ×3 (05:55→22:01)
[2017-10-09] MEDS: Levothyroxine Sodium 50 MCG TAB PO SCH (05:58)
[2017-10-09] MEDS: Mometasone/Formoterol 60 PUFF AER INH SCH ×2 (06:02→18:25)
[2017-10-09] MEDS: Enoxaparin Sodium 40 MG/0.4 ML SYRINGE SC SCH (08:22)
[2017-10-09] MEDS: Amlodipine 5 MG TAB PO SCH (08:22)
[2017-10-09] MEDS: Dutasteride 0.5 MG CAP PO SCH (08:23)
[2017-10-09] MEDS: Folic Acid 1 MG TAB PO SCH (08:23)
[2017-10-09] MEDS: Tamsulosin HCl 0.4 MG CAP PO SCH (08:23)
[2017-10-09] MEDS: Saccharomyces boulardii 250 MG CAP PO SCH (08:23)
[2017-10-09] MEDS: Vancomycin HCl 1 GM in Sodium Chloride 0.9% 250 ML 250 ML IVPB SCH ×2 (08:24→20:07)
[2017-10-10] MEDS: TAZOBACTAM IVPB SCH ×3 (05:48→21:56)
[2017-10-10] MEDS: SODIUM CHLORIDE 0.9% IVPB SCH ×3 (05:48→21:56)
[2017-10-10] MEDS: Levothyroxine Sodium 50 MCG TAB PO SCH (05:48)
[2017-10-10] MEDS: PIPERACILLIN IVPB SCH ×3 (05:48→21:56)
[2017-10-10] MEDS: Mometasone/Formoterol 60 PUFF AER INH SCH ×2 (06:00→18:19)
[2017-10-10 08:23] LABS: Vancomycin, Trough 22.2 ug/mL
[2017-10-10] MEDS: Enoxaparin Sodium 40 MG/0.4 ML SYRINGE SC SCH (09:40)
[2017-10-10] MEDS: Saccharomyces boulardii 250 MG CAP PO SCH (09:40)
[2017-10-10] MEDS: Folic Acid 1 MG TAB PO SCH (09:41)
[2017-10-10] MEDS: Tamsulosin HCl 0.4 MG CAP PO SCH (09:41)
[2017-10-10] MEDS: Dutasteride 0.5 MG CAP PO SCH (09:41)
[2017-10-10] MEDS: Amlodipine 5 MG TAB PO SCH (09:41)
[2017-10-10] MEDS: Vancomycin HCl 1 GM in Sodium Chloride 0.9% 250 ML 250 ML IVPB SCH (09:48)
[2017-10-10] MEDS: Vancomycin HCl 750 MG in Sodium Chloride 0.9% 250 ML 250 ML IVPB SCH ×2 (10:16→22:52)
[2017-10-10] MEDS: Artificial Tear Sol 15 ML BOT EA EYE PRN (21:56)
[2017-10-10] MEDS: Acetaminophen 500 MG TAB PO PRN (22:53)
[2017-10-11 05:40] LABS: Hemoglobin 10.2 g/dL (14.0-18.0); Platelet Count 189 thou/uL (130-400)
[2017-10-11 05:42] LABS: Calc. Creatinine Clearance 91 mL/min (70-130); Estimated GFR-MDRD Greater than 90
[2017-10-11] MEDS: Levothyroxine Sodium 50 MCG TAB PO SCH (06:07)
[2017-10-11] MEDS: SODIUM CHLORIDE 0.9% IVPB SCH ×3 (06:07→21:38)
[2017-10-11] MEDS: PIPERACILLIN IVPB SCH ×3 (06:07→21:38)
[2017-10-11] MEDS: TAZOBACTAM IVPB SCH ×3 (06:07→21:38)
[2017-10-11] MEDS: Mometasone/Formoterol 60 PUFF AER INH SCH ×2 (06:14→18:41)
[2017-10-11] MEDS: Amlodipine 5 MG TAB PO SCH (09:23)
[2017-10-11] MEDS: Dutasteride 0.5 MG CAP PO SCH (09:23)
[2017-10-11] MEDS: Tamsulosin HCl 0.4 MG CAP PO SCH (09:23)
[2017-10-11] MEDS: Enoxaparin Sodium 40 MG/0.4 ML SYRINGE SC SCH (09:24)
[2017-10-11] MEDS: Saccharomyces boulardii 250 MG CAP PO SCH (09:24)
[2017-10-11] MEDS: Folic Acid 1 MG TAB PO SCH (09:24)
[2017-10-11] MEDS: Vancomycin HCl 750 MG in Sodium Chloride 0.9% 250 ML 250 ML IVPB SCH ×2 (09:25→22:59)
[2017-10-11 21:17] LABS: Vancomycin, Trough 14.6 ug/mL
[2017-10-11] MEDS: Artificial Tear Sol 15 ML BOT EA EYE PRN (21:38)
[2017-10-11] MEDS: Acetaminophen 500 MG TAB PO PRN (21:38)
[2017-10-12] MEDS: PIPERACILLIN IVPB SCH ×3 (06:19→21:44)
[2017-10-12] MEDS: TAZOBACTAM IVPB SCH ×3 (06:19→21:44)
[2017-10-12] MEDS: SODIUM CHLORIDE 0.9% IVPB SCH ×3 (06:19→21:44)
[2017-10-12] MEDS: Levothyroxine Sodium 50 MCG TAB PO SCH (06:19)
[2017-10-12] MEDS: Mometasone/Formoterol 60 PUFF AER INH SCH ×2 (06:28→18:36)
[2017-10-12] MEDS: Amlodipine 5 MG TAB PO SCH (08:50)
[2017-10-12] MEDS: Tamsulosin HCl 0.4 MG CAP PO SCH (08:51)
[2017-10-12] MEDS: Folic Acid 1 MG TAB PO SCH (08:51)
[2017-10-12] MEDS: Saccharomyces boulardii 250 MG CAP PO SCH (08:51)
[2017-10-12] MEDS: Dutasteride 0.5 MG CAP PO SCH (08:51)
[2017-10-12] MEDS: Vancomycin HCl 750 MG in Sodium Chloride 0.9% 250 ML 250 ML IVPB SCH (08:52)
[2017-10-12] MEDS: Enoxaparin Sodium 40 MG/0.4 ML SYRINGE SC SCH (08:52)
[2017-10-12] MEDS: Artificial Tear Sol 15 ML BOT EA EYE PRN (21:44)
[2017-10-12] MEDS: Acetaminophen 500 MG TAB PO PRN (21:45)
[2017-10-13] MEDS: Vancomycin HCl 750 MG in Sodium Chloride 0.9% 250 ML 250 ML IVPB SCH ×3 (00:23→23:39)
[2017-10-13] MEDS: Acetaminophen 500 MG TAB PO PRN ×3 (03:03→23:52)
[2017-10-13] MEDS: SODIUM CHLORIDE 0.9% IVPB SCH ×3 (05:37→22:20)
[2017-10-13] MEDS: TAZOBACTAM IVPB SCH ×3 (05:37→22:20)
[2017-10-13] MEDS: PIPERACILLIN IVPB SCH ×3 (05:37→22:20)
[2017-10-13] MEDS: Mometasone/Formoterol 60 PUFF AER INH SCH ×2 (05:54→18:29)
[2017-10-13 06:00] LABS: Hemoglobin 9.9 g/dL (14.0-18.0); Platelet Count 179 thou/uL (130-400)
[2017-10-13] MEDS: Levothyroxine Sodium 50 MCG TAB PO SCH (06:00)
[2017-10-13 06:02] LABS: Calc. Creatinine Clearance 79 mL/min (70-130); Estimated GFR-MDRD Greater than 90
[2017-10-13] MEDS: Tamsulosin HCl 0.4 MG CAP PO SCH (09:34)
[2017-10-13] MEDS: Dutasteride 0.5 MG CAP PO SCH (09:35)
[2017-10-13] MEDS: Saccharomyces boulardii 250 MG CAP PO SCH (09:35)
[2017-10-13] MEDS: Folic Acid 1 MG TAB PO SCH (09:35)
[2017-10-13] MEDS: Amlodipine 5 MG TAB PO SCH (09:35)
[2017-10-13 09:36] LABS: Vancomycin, Trough 18.4 ug/mL
[2017-10-13] MEDS: Enoxaparin Sodium 40 MG/0.4 ML SYRINGE SC SCH (09:36)
[2017-10-13] MEDS: Artificial Tear Sol 15 ML BOT EA EYE PRN (22:20)
[2017-10-14] MEDS: Acetaminophen 500 MG TAB PO PRN ×2 (05:19→22:59)
[2017-10-14] MEDS: SODIUM CHLORIDE 0.9% IVPB SCH ×3 (05:19→22:58)
[2017-10-14] MEDS: Levothyroxine Sodium 50 MCG TAB PO SCH (05:19)
[2017-10-14] MEDS: TAZOBACTAM IVPB SCH ×3 (05:19→22:58)
[2017-10-14] MEDS: PIPERACILLIN IVPB SCH ×3 (05:19→22:58)
[2017-10-14 05:24] LABS: #Basophils 0.1 thou/uL (0.0-0.2); #Eosinphils 0.2 thou/uL (0.0-0.7); #Lymphocytes 1.3 thou/uL (1.20-3.40); #Monocytes 0.7 thou/uL (0.11-0.59); #Neutrophils 3.3 thou/uL (1.40-6.50); %Basophils 1.4 % (0.0-1.0); %Eosinophils 2.9 % (0.0-10.0); %Lymphocytes 23.3 % (21.0-51.0); %Monocytes 12.6 % (0.0-10.0); %Neutrophils 59.8 % (42.0-75.0); Hemoglobin 10.2 g/dL (14.0-18.0); Mean Corpuscular HGB CONC 34.3 g/dL (32.0-36.0); Mean Platelet Volume 5.9 fL (7.4-10.4); Platelet Count 189 thou/uL (130-400); RBC Distribution Width 15.2 % (11.5-14.5); Red Blood Cell (RBC) Count 3.11 mill/uL (4.70-6.10); White Blood Cell (WBC) Count 5.5 thou/uL (4.8-10.8)
[2017-10-14 05:42] LABS: ALT (SGPT) Less than 7 U/L (8-55); AST (SGOT) 7 U/L (5-34); Albumin 2.5 g/dL (3.4-4.8); Alkaline Phosphatase 131 U/L (40-150); Anion Gap 12 mmol/L (10-20); BUN (Urea Nitrogen) 4 mg/dL (8.4-25.7); Bilirubin, Total 0.3 mg/dL (0.2-1.2); Calc. Creatinine Clearance 82 mL/min (70-130); Calcium 8.2 mg/dL (7.8-10.44); Carbon Dioxide 22 mmol/L (23-31); Chloride 113 mmol/L (98-107); Estimated GFR-MDRD Greater than 90; Globulin 2.3 g/dL (2.4-3.5); Glucose 103 mg/dL (83-110); Protein, Total 4.8 g/dL (5.8-8.1); Sodium 144 mmol/L (136-145)
[2017-10-14 05:53] LABS: Potassium 2.9 mmol/L (3.5-5.1)
[2017-10-14] MEDS ORDERED: Potassium Chloride 20 MEQ TAB PO SCH (06:15)
[2017-10-14] MEDS: Mometasone/Formoterol 60 PUFF AER INH SCH ×2 (06:40→18:16)
[2017-10-14] MEDS: Dutasteride 0.5 MG CAP PO SCH (08:31)
[2017-10-14] MEDS: Tamsulosin HCl 0.4 MG CAP PO SCH (08:31)
[2017-10-14] MEDS: Amlodipine 5 MG TAB PO SCH (08:33)
[2017-10-14] MEDS: Folic Acid 1 MG TAB PO SCH (08:33)
[2017-10-14] MEDS: Saccharomyces boulardii 250 MG CAP PO SCH (08:33)
[2017-10-14] MEDS: Enoxaparin Sodium 40 MG/0.4 ML SYRINGE SC SCH (08:35)
[2017-10-14] MEDS: Vancomycin HCl 750 MG in Sodium Chloride 0.9% 250 ML 250 ML IVPB SCH ×2 (11:29→13:50)
[2017-10-14] MEDS: Furosemide 40 MG TAB PO SCH (13:50)
[2017-10-14] MEDS: Artificial Tear Sol 15 ML BOT EA EYE PRN (22:59)
[2017-10-15] MEDS: Vancomycin HCl 750 MG in Sodium Chloride 0.9% 250 ML 250 ML IVPB SCH ×3 (00:03→16:58)
[2017-10-15] MEDS: PIPERACILLIN IVPB SCH ×3 (05:08→21:46)
[2017-10-15] MEDS: TAZOBACTAM IVPB SCH ×3 (05:08→21:46)
[2017-10-15] MEDS: SODIUM CHLORIDE 0.9% IVPB SCH ×3 (05:08→21:46)
[2017-10-15] MEDS: Mometasone/Formoterol 60 PUFF AER INH SCH ×2 (05:12→18:25)
[2017-10-15 05:38] LABS: Anion Gap 12 mmol/L (10-20); BUN (Urea Nitrogen) Less than 4 mg/dL (8.4-25.7); Calc. Creatinine Clearance 88 mL/min (70-130); Calcium 8.3 mg/dL (7.8-10.44); Carbon Dioxide 25 mmol/L (23-31); Chloride 110 mmol/L (98-107); Estimated GFR-MDRD Greater than 90; Glucose 99 mg/dL (83-110); Sodium 144 mmol/L (136-145)
[2017-10-15] MEDS: Levothyroxine Sodium 50 MCG TAB PO SCH (05:40)
[2017-10-15 05:59] LABS: Potassium 2.9 mmol/L (3.5-5.1)
[2017-10-15 06:09] LABS: Hemoglobin 10.1 g/dL (14.0-18.0); Platelet Count 207 thou/uL (130-400)
[2017-10-15] MEDS ORDERED: Potassium Chloride 20 MEQ TAB PO SCH (06:30)
[2017-10-15] MEDS: Amlodipine 5 MG TAB PO SCH ×2 (09:58→15:29)
[2017-10-15] MEDS: Enoxaparin Sodium 40 MG/0.4 ML SYRINGE SC SCH (10:14)
[2017-10-15] MEDS: Dutasteride 0.5 MG CAP PO SCH ×2 (10:14→15:29)
[2017-10-15] MEDS: Furosemide 40 MG TAB PO SCH ×2 (10:14→15:27)
[2017-10-15] MEDS: Folic Acid 1 MG TAB PO SCH ×2 (10:14→15:28)
[2017-10-15] MEDS: Tamsulosin HCl 0.4 MG CAP PO SCH ×2 (10:15→15:32)
[2017-10-15] MEDS: Saccharomyces boulardii 250 MG CAP PO SCH ×2 (10:15→15:32)
[2017-10-15] MEDS: Artificial Tear Sol 15 ML BOT EA EYE PRN (21:47)
[2017-10-15] MEDS: Acetaminophen 500 MG TAB PO PRN (23:41)
[2017-10-16] MEDS: Vancomycin HCl 750 MG in Sodium Chloride 0.9% 250 ML 250 ML IVPB SCH ×2 (03:23→16:11)
[2017-10-16] MEDS: PIPERACILLIN IVPB SCH ×3 (06:04→21:56)
[2017-10-16] MEDS: TAZOBACTAM IVPB SCH ×3 (06:04→21:56)
[2017-10-16] MEDS: SODIUM CHLORIDE 0.9% IVPB SCH ×3 (06:04→21:56)
[2017-10-16] MEDS: Levothyroxine Sodium 50 MCG TAB PO SCH (06:05)
[2017-10-16] MEDS: Mometasone/Formoterol 60 PUFF AER INH SCH ×2 (06:22→17:24)
[2017-10-16] MEDS: Enoxaparin Sodium 40 MG/0.4 ML SYRINGE SC SCH (09:44)
[2017-10-16] MEDS: Dutasteride 0.5 MG CAP PO SCH (09:45)
[2017-10-16] MEDS: Potassium Chloride 20 MEQ TAB PO SCH (09:45)
[2017-10-16] MEDS: Folic Acid 1 MG TAB PO SCH (09:45)
[2017-10-16] MEDS: Tamsulosin HCl 0.4 MG CAP PO SCH (09:45)
[2017-10-16] MEDS: Amlodipine 5 MG TAB PO SCH (09:47)
[2017-10-16] MEDS: Saccharomyces boulardii 250 MG CAP PO SCH (09:49)
[2017-10-16] MEDS: traMADol HCl 50 MG TAB PO PRN (11:34)
[2017-10-16 15:18] LABS: Vancomycin, Trough 17.2 ug/mL
[2017-10-17] MEDS: Vancomycin HCl 750 MG in Sodium Chloride 0.9% 250 ML 250 ML IVPB SCH ×2 (04:18→16:23)
[2017-10-17] MEDS: SODIUM CHLORIDE 0.9% IVPB SCH ×3 (05:53→21:54)
[2017-10-17] MEDS: TAZOBACTAM IVPB SCH ×3 (05:53→21:54)
[2017-10-17] MEDS: PIPERACILLIN IVPB SCH ×3 (05:53→21:54)
[2017-10-17] MEDS: Levothyroxine Sodium 50 MCG TAB PO SCH (05:55)
[2017-10-17] MEDS: Mometasone/Formoterol 60 PUFF AER INH SCH ×2 (06:04→18:22)
[2017-10-17 07:08] LABS: Calc. Creatinine Clearance 88 mL/min (70-130); Estimated GFR-MDRD Greater than 90
[2017-10-17 07:14] LABS: Hemoglobin 10.3 g/dL (14.0-18.0); Platelet Count 223 thou/uL (130-400)
[2017-10-17] MEDS: Enoxaparin Sodium 40 MG/0.4 ML SYRINGE SC SCH (09:33)
[2017-10-17] MEDS: Saccharomyces boulardii 250 MG CAP PO SCH (09:34)
[2017-10-17] MEDS: Amlodipine 5 MG TAB PO SCH (09:35)
[2017-10-17] MEDS: Tamsulosin HCl 0.4 MG CAP PO SCH (09:37)
[2017-10-17] MEDS: Potassium Chloride 20 MEQ TAB PO SCH (09:37)
[2017-10-17] MEDS: Dutasteride 0.5 MG CAP PO SCH (09:37)
[2017-10-17] MEDS: Folic Acid 1 MG TAB PO SCH (09:37)
[2017-10-17] MEDS: traMADol HCl 50 MG TAB PO PRN ×2 (10:59→22:05)
[2017-10-18] MEDS: Vancomycin HCl 750 MG in Sodium Chloride 0.9% 250 ML 250 ML IVPB SCH ×2 (03:42→17:18)
[2017-10-18] MEDS: SODIUM CHLORIDE 0.9% IVPB SCH ×3 (05:21→21:25)
[2017-10-18] MEDS: PIPERACILLIN IVPB SCH ×3 (05:21→21:25)
[2017-10-18] MEDS: TAZOBACTAM IVPB SCH ×3 (05:21→21:25)
[2017-10-18] MEDS: Levothyroxine Sodium 50 MCG TAB PO SCH (05:23)
[2017-10-18] MEDS: Mometasone/Formoterol 60 PUFF AER INH SCH ×2 (05:24→18:35)
[2017-10-18] MEDS: Enoxaparin Sodium 40 MG/0.4 ML SYRINGE SC SCH (08:58)
[2017-10-18] MEDS: Amlodipine 5 MG TAB PO SCH (08:59)
[2017-10-18] MEDS: traMADol HCl 50 MG TAB PO PRN (09:00)
[2017-10-18] MEDS: Folic Acid 1 MG TAB PO SCH (09:01)
[2017-10-18] MEDS: Saccharomyces boulardii 250 MG CAP PO SCH (09:01)
[2017-10-18] MEDS: Potassium Chloride 20 MEQ TAB PO SCH (09:01)
[2017-10-18] MEDS: Dutasteride 0.5 MG CAP PO SCH (09:02)
[2017-10-18] MEDS: Tamsulosin HCl 0.4 MG CAP PO SCH (09:02)
[2017-10-18] MEDS ORDERED: Furosemide 40 MG TAB PO SCH (14:00)
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
[2017-10-18] MEDS: FORMOTEROL INH SCH (21:47)
[2017-10-18] MEDS: MOMETASONE INH SCH (21:47)
[2017-10-19] MEDS: Vancomycin HCl 750 MG in Sodium Chloride 0.9% 250 ML 250 ML IVPB SCH ×2 (03:32→16:44)
[2017-10-19 05:50] LABS: Platelet Count 227 thou/uL (130-400)
[2017-10-19 06:03] LABS: Anion Gap 14 mmol/L (10-20); BUN (Urea Nitrogen) 5 mg/dL (8.4-25.7); Calc. Creatinine Clearance 84 mL/min (70-130); Calcium 8.4 mg/dL (7.8-10.44); Carbon Dioxide 24 mmol/L (23-31); Chloride 106 mmol/L (98-107); Estimated GFR-MDRD Greater than 90; Glucose 106 mg/dL (83-110); Potassium 3.1 mmol/L (3.5-5.1); Sodium 141 mmol/L (136-145)
[2017-10-19] MEDS: SODIUM CHLORIDE 0.9% IVPB SCH ×2 (06:29→14:00)
[2017-10-19] MEDS: TAZOBACTAM IVPB SCH ×2 (06:29→14:00)
[2017-10-19] MEDS: PIPERACILLIN IVPB SCH ×2 (06:29→14:00)
[2017-10-19] MEDS: Levothyroxine Sodium 50 MCG TAB PO SCH (06:30)
[2017-10-19] MEDS: FORMOTEROL INH SCH ×2 (07:01→18:26)
[2017-10-19] MEDS: MOMETASONE INH SCH ×2 (07:01→18:26)
[2017-10-19] MEDS: Enoxaparin Sodium 40 MG/0.4 ML SYRINGE SC SCH (08:42)
[2017-10-19] MEDS: Potassium Chloride 20 MEQ TAB PO SCH (08:43)
[2017-10-19] MEDS: Tamsulosin HCl 0.4 MG CAP PO SCH (08:43)
[2017-10-19] MEDS: Amlodipine 5 MG TAB PO SCH (08:44)
[2017-10-19] MEDS: Folic Acid 1 MG TAB PO SCH (08:44)
[2017-10-19] MEDS: Dutasteride 0.5 MG CAP PO SCH (08:44)
[2017-10-19] MEDS: Saccharomyces boulardii 250 MG CAP PO SCH (08:45)
[2017-10-19] MEDS: Furosemide 40 MG TAB PO SCH (08:46)
[2017-10-19] MEDS ORDERED: Metolazone 5 MG TAB PO SCH (12:30)
[2017-10-19] MEDS ORDERED: Potassium Chloride 20 MEQ TAB PO SCH (12:30)
[2017-10-20] MEDS: Levothyroxine Sodium 50 MCG TAB PO SCH (05:23)
[2017-10-20 05:53] LABS: Anion Gap 13 mmol/L (10-20); BUN (Urea Nitrogen) Less than 4 mg/dL (8.4-25.7); Calc. Creatinine Clearance 79 mL/min (70-130); Calcium 8.6 mg/dL (7.8-10.44); Carbon Dioxide 27 mmol/L (23-31); Chloride 108 mmol/L (98-107); Estimated GFR-MDRD Greater than 90; Glucose 101 mg/dL (83-110); Potassium 3.2 mmol/L (3.5-5.1); Sodium 145 mmol/L (136-145)
[2017-10-20] MEDS: FORMOTEROL INH SCH ×2 (06:42→18:59)
[2017-10-20] MEDS: MOMETASONE INH SCH ×2 (06:42→18:59)
[2017-10-20] MEDS: Enoxaparin Sodium 40 MG/0.4 ML SYRINGE SC SCH (10:16)
[2017-10-20] MEDS: Potassium Chloride 20 MEQ TAB PO SCH (10:18)
[2017-10-20] MEDS: Saccharomyces boulardii 250 MG CAP PO SCH (10:18)
[2017-10-20] MEDS: Amlodipine 5 MG TAB PO SCH (10:19)
[2017-10-20] MEDS: Dutasteride 0.5 MG CAP PO SCH (10:20)
[2017-10-20] MEDS: Tamsulosin HCl 0.4 MG CAP PO SCH (10:20)
[2017-10-20] MEDS: Folic Acid 1 MG TAB PO SCH (10:20)
[2017-10-20] MEDS: Furosemide 40 MG TAB PO SCH (10:22)
[2017-10-21] MEDS: Levothyroxine Sodium 50 MCG TAB PO SCH (05:56)
[2017-10-21 06:24] LABS: Hemoglobin 10.2 g/dL (14.0-18.0); Platelet Count 209 thou/uL (130-400)
[2017-10-21 06:29] LABS: Calc. Creatinine Clearance 80 mL/min (70-130); Estimated GFR-MDRD Greater than 90
[2017-10-21] MEDS: Tamsulosin HCl 0.4 MG CAP PO SCH (10:01)
[2017-10-21] MEDS: Saccharomyces boulardii 250 MG CAP PO SCH (10:01)
[2017-10-21] MEDS: Potassium Chloride 20 MEQ TAB PO SCH (10:01)
[2017-10-21] MEDS: Amlodipine 5 MG TAB PO SCH (10:02)
[2017-10-21] MEDS: Folic Acid 1 MG TAB PO SCH (10:02)
[2017-10-21] MEDS: Dutasteride 0.5 MG CAP PO SCH (10:02)
[2017-10-21] MEDS: Enoxaparin Sodium 40 MG/0.4 ML SYRINGE SC SCH (10:03)
[2017-10-21] MEDS: Mometasone/Formoterol 60 PUFF AER INH SCH ×2 (10:04→20:58)
[2017-10-21] MEDS: Furosemide 40 MG TAB PO SCH (10:05)
[2017-10-21] MEDS: Acetaminophen 500 MG TAB PO PRN (10:14)
[2017-10-21] MEDS: guaiFENesin ER 600 MG TAB PO PRN (18:45)
[2017-10-22] MEDS: guaiFENesin ER 600 MG TAB PO PRN (01:21)
[2017-10-22] MEDS: traMADol HCl 50 MG TAB PO PRN (01:22)
[2017-10-22] MEDS: Levothyroxine Sodium 50 MCG TAB PO SCH (06:16)
[2017-10-22] MEDS: Furosemide 40 MG TAB PO SCH (09:11)
[2017-10-22] MEDS: Dutasteride 0.5 MG CAP PO SCH (09:12)
[2017-10-22] MEDS: Tamsulosin HCl 0.4 MG CAP PO SCH (09:12)
[2017-10-22] MEDS: Amlodipine 5 MG TAB PO SCH (09:13)
[2017-10-22] MEDS: Saccharomyces boulardii 250 MG CAP PO SCH (09:13)
[2017-10-22] MEDS: Potassium Chloride 20 MEQ TAB PO SCH (09:14)
[2017-10-22] MEDS: Folic Acid 1 MG TAB PO SCH (09:14)
[2017-10-22] MEDS: Mometasone/Formoterol 60 PUFF AER INH SCH ×2 (09:16→21:06)
[2017-10-22] MEDS: Enoxaparin Sodium 40 MG/0.4 ML SYRINGE SC SCH (09:16)
[2017-10-22] MEDS: Sulfameth/Trimethoprim DS 800-160mg TAB PO SCH (21:05)
[2017-10-23 05:41] LABS: Anion Gap 12 mmol/L (10-20); BUN (Urea Nitrogen) 10 mg/dL (8.4-25.7); Calc. Creatinine Clearance 76 mL/min (70-130); Calcium 7.9 mg/dL (7.8-10.44); Carbon Dioxide 29 mmol/L (23-31); Chloride 103 mmol/L (98-107); Estimated GFR-MDRD Greater than 90; Glucose 92 mg/dL (83-110); Sodium 141 mmol/L (136-145)
[2017-10-23] MEDS: Levothyroxine Sodium 50 MCG TAB PO SCH (05:45)
[2017-10-23 07:11] LABS: Hemoglobin 10.4 g/dL (14.0-18.0); Platelet Count 216 thou/uL (130-400)
[2017-10-23] MEDS ORDERED: Potassium Chloride 20 MEQ TAB PO SCH (08:15)
[2017-10-23] MEDS: Furosemide 40 MG TAB PO SCH (09:03)
[2017-10-23] MEDS: Saccharomyces boulardii 250 MG CAP PO SCH (09:04)
[2017-10-23] MEDS: Dutasteride 0.5 MG CAP PO SCH (09:04)
[2017-10-23] MEDS: Tamsulosin HCl 0.4 MG CAP PO SCH (09:04)
[2017-10-23] MEDS: Amlodipine 5 MG TAB PO SCH (09:05)
[2017-10-23] MEDS: Folic Acid 1 MG TAB PO SCH (09:07)
[2017-10-23] MEDS: Mometasone/Formoterol 60 PUFF AER INH SCH ×2 (09:07→20:53)
[2017-10-23] MEDS: guaiFENesin ER 600 MG TAB PO PRN (09:13)
[2017-10-23] MEDS: Sulfameth/Trimethoprim DS 800-160mg TAB PO SCH ×2 (09:13→20:53)
[2017-10-23] MEDS: Enoxaparin Sodium 40 MG/0.4 ML SYRINGE SC SCH (09:13)
[2017-10-23] MEDS ORDERED: Metolazone 5 MG TAB PO SCH (10:15)
[2017-10-23] MEDS: traMADol HCl 50 MG TAB PO PRN (21:01)
--- NOTE | 2017-10-23 21:22 | RAD ---
CHEST TWO VIEWS: 10/23/17 Comparison is made with the 10/06 study. Again seen is a right basilar infiltrate which has become a li ttle more extensive in the interval. There is now a small right pleural effusion. COPD is noted with flattening of the diaphragm. No new infiltrates are seen on the left. The heart size is normal. There is no congestive change. Calcific changes are seen in the aortic arch. IMPRESSION: Right lower lobe infiltrate and effusion, slightly worse than on 10/06. POS: HOME
[2017-10-24] MEDS: Levothyroxine Sodium 50 MCG TAB PO SCH (05:59)
[2017-10-24] MEDS: Enoxaparin Sodium 40 MG/0.4 ML SYRINGE SC SCH (09:15)
[2017-10-24] MEDS: Dutasteride 0.5 MG CAP PO SCH (09:15)
[2017-10-24] MEDS: Sulfameth/Trimethoprim DS 800-160mg TAB PO SCH ×2 (09:15→21:11)
[2017-10-24] MEDS: Folic Acid 1 MG TAB PO SCH (09:16)
[2017-10-24] MEDS: Saccharomyces boulardii 250 MG CAP PO SCH (09:16)
[2017-10-24] MEDS: Tamsulosin HCl 0.4 MG CAP PO SCH (09:16)
[2017-10-24] MEDS: Amlodipine 5 MG TAB PO SCH (09:20)
[2017-10-24] MEDS: Mometasone/Formoterol 60 PUFF AER INH SCH ×2 (09:23→21:11)
[2017-10-24] MEDS ORDERED: Metolazone 5 MG TAB PO SCH (10:20)
[2017-10-24] MEDS: traMADol HCl 50 MG TAB PO PRN (21:21)
[2017-10-24] MEDS: guaiFENesin ER 600 MG TAB PO PRN (21:31)
[2017-10-25] MEDS: Levothyroxine Sodium 50 MCG TAB PO SCH (06:04)
[2017-10-25 06:08] LABS: Hemoglobin 10.6 g/dL (14.0-18.0); Platelet Count 258 thou/uL (130-400)
[2017-10-25] MEDS: Mometasone/Formoterol 60 PUFF AER INH SCH ×2 (08:15→20:50)
[2017-10-25] MEDS: Tamsulosin HCl 0.4 MG CAP PO SCH (08:17)
[2017-10-25] MEDS: Enoxaparin Sodium 40 MG/0.4 ML SYRINGE SC SCH (08:17)
[2017-10-25] MEDS: Saccharomyces boulardii 250 MG CAP PO SCH (08:17)
[2017-10-25] MEDS: Dutasteride 0.5 MG CAP PO SCH (08:17)
[2017-10-25] MEDS: Sulfameth/Trimethoprim DS 800-160mg TAB PO SCH ×2 (08:17→20:50)
[2017-10-25] MEDS: Amlodipine 5 MG TAB PO SCH (08:18)
[2017-10-25] MEDS: Folic Acid 1 MG TAB PO SCH (08:18)
[2017-10-25] MEDS ORDERED: Torsemide 20 MG TAB PO SCH (13:00)
[2017-10-26] MEDS: Levothyroxine Sodium 50 MCG TAB PO SCH (06:07)
[2017-10-26] MEDS: Amlodipine 5 MG TAB PO SCH (08:51)
[2017-10-26] MEDS: Sulfameth/Trimethoprim DS 800-160mg TAB PO SCH ×2 (08:51→21:16)
[2017-10-26] MEDS: Torsemide 20 MG TAB PO SCH (08:52)
[2017-10-26] MEDS: Saccharomyces boulardii 250 MG CAP PO SCH (08:52)
[2017-10-26] MEDS: Tamsulosin HCl 0.4 MG CAP PO SCH (08:52)
[2017-10-26] MEDS: Dutasteride 0.5 MG CAP PO SCH (08:52)
[2017-10-26] MEDS: Folic Acid 1 MG TAB PO SCH (08:52)
[2017-10-26] MEDS: Enoxaparin Sodium 40 MG/0.4 ML SYRINGE SC SCH (08:53)
[2017-10-26] MEDS: Mometasone/Formoterol 60 PUFF AER INH SCH ×2 (08:57→21:16)
[2017-10-27 06:28] LABS: Hemoglobin 10.9 g/dL (14.0-18.0); Platelet Count 317 thou/uL (130-400)
[2017-10-27] MEDS: Levothyroxine Sodium 50 MCG TAB PO SCH (06:54)
[2017-10-27] MEDS: Dutasteride 0.5 MG CAP PO SCH (09:13)
[2017-10-27] MEDS: Folic Acid 1 MG TAB PO SCH (09:13)
[2017-10-27] MEDS: Torsemide 20 MG TAB PO SCH (09:14)
[2017-10-27] MEDS: Amlodipine 5 MG TAB PO SCH (09:14)
[2017-10-27] MEDS: Sulfameth/Trimethoprim DS 800-160mg TAB PO SCH ×2 (09:14→21:03)
[2017-10-27] MEDS: Tamsulosin HCl 0.4 MG CAP PO SCH (09:14)
[2017-10-27] MEDS: Saccharomyces boulardii 250 MG CAP PO SCH (09:14)
[2017-10-27] MEDS: Mometasone/Formoterol 60 PUFF AER INH SCH ×2 (09:15→21:01)
[2017-10-27] MEDS: Enoxaparin Sodium 40 MG/0.4 ML SYRINGE SC SCH (09:15)
[2017-10-28] MEDS: Levothyroxine Sodium 50 MCG TAB PO SCH (05:17)
[2017-10-28] MEDS: Enoxaparin Sodium 40 MG/0.4 ML SYRINGE SC SCH (08:43)
[2017-10-28] MEDS: Dutasteride 0.5 MG CAP PO SCH (08:44)
[2017-10-28] MEDS: Saccharomyces boulardii 250 MG CAP PO SCH (08:49)
[2017-10-28] MEDS: Tamsulosin HCl 0.4 MG CAP PO SCH (08:49)
[2017-10-28] MEDS: Mometasone/Formoterol 60 PUFF AER INH SCH ×2 (08:49→19:57)
[2017-10-28] MEDS: Torsemide 20 MG TAB PO SCH (08:49)
[2017-10-28] MEDS: Sulfameth/Trimethoprim DS 800-160mg TAB PO SCH ×2 (08:49→19:56)
[2017-10-28] MEDS: Folic Acid 1 MG TAB PO SCH (08:49)
[2017-10-28] MEDS: Amlodipine 5 MG TAB PO SCH (08:49)
[2017-10-29 05:38] LABS: Hemoglobin 10.7 g/dL (14.0-18.0); Platelet Count 287 thou/uL (130-400)
[2017-10-29] MEDS: Levothyroxine Sodium 50 MCG TAB PO SCH (07:06)
[2017-10-29] MEDS: guaiFENesin ER 600 MG TAB PO PRN (08:25)
[2017-10-29] MEDS: Torsemide 20 MG TAB PO SCH (08:25)
[2017-10-29] MEDS: Sulfameth/Trimethoprim DS 800-160mg TAB PO SCH ×2 (08:26→20:45)
[2017-10-29] MEDS: Folic Acid 1 MG TAB PO SCH (08:26)
[2017-10-29] MEDS: Mometasone/Formoterol 60 PUFF AER INH SCH ×2 (08:26→20:46)
[2017-10-29] MEDS: Saccharomyces boulardii 250 MG CAP PO SCH (08:26)
[2017-10-29] MEDS: Tamsulosin HCl 0.4 MG CAP PO SCH (08:26)
[2017-10-29] MEDS: Dutasteride 0.5 MG CAP PO SCH (08:26)
[2017-10-29] MEDS: Artificial Tear Sol 15 ML BOT EA EYE PRN (08:29)
[2017-10-29] MEDS: Enoxaparin Sodium 40 MG/0.4 ML SYRINGE SC SCH (08:31)
[2017-10-29] MEDS: Amlodipine 5 MG TAB PO SCH (08:31)
[2017-10-29] MEDS: Acetaminophen 500 MG TAB PO PRN (09:52)
[2017-10-29] MEDS ORDERED: Torsemide 20 MG TAB PO SCH ×2 (12:47→13:15)
[2017-10-30 05:58] LABS: Anion Gap 17 mmol/L (10-20); BUN (Urea Nitrogen) 17 mg/dL (8.4-25.7); Calc. Creatinine Clearance 41 mL/min (70-130); Calcium 8.6 mg/dL (7.8-10.44); Carbon Dioxide 23 mmol/L (23-31); Chloride 103 mmol/L (98-107); Estimated GFR-MDRD 49; Glucose 96 mg/dL (83-110); Potassium 3.8 mmol/L (3.5-5.1); Sodium 139 mmol/L (136-145)
[2017-10-30] MEDS: Levothyroxine Sodium 50 MCG TAB PO SCH (05:58)
[2017-10-30] MEDS: guaiFENesin ER 600 MG TAB PO PRN (06:26)
[2017-10-30] MEDS: Folic Acid 1 MG TAB PO SCH (09:31)
[2017-10-30] MEDS: Tamsulosin HCl 0.4 MG CAP PO SCH (09:32)
[2017-10-30] MEDS: Saccharomyces boulardii 250 MG CAP PO SCH (09:32)
[2017-10-30] MEDS: Dutasteride 0.5 MG CAP PO SCH (09:32)
[2017-10-30] MEDS: Sulfameth/Trimethoprim DS 800-160mg TAB PO SCH ×2 (09:34→20:35)
[2017-10-30] MEDS: Torsemide 20 MG TAB PO SCH (09:34)
[2017-10-30] MEDS: Enoxaparin Sodium 40 MG/0.4 ML SYRINGE SC SCH (09:35)
[2017-10-30] MEDS: Mometasone/Formoterol 60 PUFF AER INH SCH ×2 (09:35→20:35)
[2017-10-30] MEDS: Acetaminophen 500 MG TAB PO PRN (13:26)
[2017-10-31] MEDS: Levothyroxine Sodium 50 MCG TAB PO SCH (05:59)
[2017-10-31 06:46] LABS: Hemoglobin 11.9 g/dL (14.0-18.0); Platelet Count 319 thou/uL (130-400)
[2017-10-31] MEDS: Torsemide 20 MG TAB PO SCH (08:32)
[2017-10-31] MEDS: Dutasteride 0.5 MG CAP PO SCH (08:33)
[2017-10-31] MEDS: Saccharomyces boulardii 250 MG CAP PO SCH (08:33)
[2017-10-31] MEDS: Tamsulosin HCl 0.4 MG CAP PO SCH (08:33)
[2017-10-31] MEDS: Mometasone/Formoterol 60 PUFF AER INH SCH ×2 (08:33→20:39)
[2017-10-31] MEDS: Folic Acid 1 MG TAB PO SCH (08:33)
[2017-10-31] MEDS: Enoxaparin Sodium 40 MG/0.4 ML SYRINGE SC SCH (08:35)
[2017-10-31] MEDS: Sulfameth/Trimethoprim DS 800-160mg TAB PO SCH (08:37)
[2017-10-31] MEDS: traMADol HCl 50 MG TAB PO PRN ×2 (11:58→20:53)
[2017-11-01] MEDS: Levothyroxine Sodium 50 MCG TAB PO SCH (06:17)
[2017-11-01] MEDS: Dutasteride 0.5 MG CAP PO SCH (09:04)
[2017-11-01] MEDS: Saccharomyces boulardii 250 MG CAP PO SCH (09:05)
[2017-11-01] MEDS: Torsemide 20 MG TAB PO SCH (09:07)
[2017-11-01] MEDS: Enoxaparin Sodium 40 MG/0.4 ML SYRINGE SC SCH (09:08)
[2017-11-01] MEDS: Folic Acid 1 MG TAB PO SCH (09:08)
[2017-11-01] MEDS: Tamsulosin HCl 0.4 MG CAP PO SCH (09:08)
[2017-11-01] MEDS: Mometasone/Formoterol 60 PUFF AER INH SCH ×2 (09:11→20:12)
[2017-11-01] MEDS: traMADol HCl 50 MG TAB PO PRN ×2 (09:16→19:33)
[2017-11-02 05:36] LABS: Hemoglobin 10.2 g/dL (14.0-18.0); Platelet Count 257 thou/uL (130-400)
[2017-11-02] MEDS: Levothyroxine Sodium 50 MCG TAB PO SCH (06:07)
[2017-11-02] MEDS: Enoxaparin Sodium 40 MG/0.4 ML SYRINGE SC SCH (08:31)
[2017-11-02] MEDS: Acetaminophen 500 MG TAB PO PRN (08:31)
[2017-11-02] MEDS: Torsemide 20 MG TAB PO SCH (08:32)
[2017-11-02] MEDS: Folic Acid 1 MG TAB PO SCH (08:32)
[2017-11-02] MEDS: Dutasteride 0.5 MG CAP PO SCH (08:32)
[2017-11-02] MEDS: Tamsulosin HCl 0.4 MG CAP PO SCH (08:32)
[2017-11-02] MEDS: Mometasone/Formoterol 60 PUFF AER INH SCH ×2 (08:33→20:57)
[2017-11-02] MEDS: Saccharomyces boulardii 250 MG CAP PO SCH (08:53)
[2017-11-03] MEDS: Levothyroxine Sodium 50 MCG TAB PO SCH (05:57)
[2017-11-03] MEDS: Dutasteride 0.5 MG CAP PO SCH (10:07)
[2017-11-03] MEDS: Saccharomyces boulardii 250 MG CAP PO SCH (10:11)
[2017-11-03] MEDS: Folic Acid 1 MG TAB PO SCH (10:11)
[2017-11-03] MEDS: Tamsulosin HCl 0.4 MG CAP PO SCH (10:12)
[2017-11-03] MEDS: Enoxaparin Sodium 40 MG/0.4 ML SYRINGE SC SCH (10:15)
[2017-11-03] MEDS: Torsemide 20 MG TAB PO SCH (10:17)
[2017-11-03] MEDS: Mometasone/Formoterol 60 PUFF AER INH SCH ×2 (10:18→19:53)
[2017-11-04 05:41] LABS: Hemoglobin 11.2 g/dL (14.0-18.0); Platelet Count 273 thou/uL (130-400)
[2017-11-04] MEDS: Levothyroxine Sodium 50 MCG TAB PO SCH (06:06)
[2017-11-04] MEDS: Saccharomyces boulardii 250 MG CAP PO SCH (08:36)
[2017-11-04] MEDS: Dutasteride 0.5 MG CAP PO SCH (08:37)
[2017-11-04] MEDS: Tamsulosin HCl 0.4 MG CAP PO SCH (08:37)
[2017-11-04] MEDS: Folic Acid 1 MG TAB PO SCH (08:37)
[2017-11-04] MEDS: Enoxaparin Sodium 40 MG/0.4 ML SYRINGE SC SCH (08:38)
[2017-11-04] MEDS: Torsemide 20 MG TAB PO SCH (08:38)
[2017-11-04] MEDS: Mometasone/Formoterol 60 PUFF AER INH SCH ×2 (08:45→21:24)
[2017-11-04] MEDS: traMADol HCl 50 MG TAB PO PRN (12:23)
[2017-11-04] MEDS: Acetaminophen 500 MG TAB PO PRN (14:18)
[2017-11-05] MEDS: Levothyroxine Sodium 50 MCG TAB PO SCH (05:54)
[2017-11-05] MEDS: Saccharomyces boulardii 250 MG CAP PO SCH (09:06)
[2017-11-05] MEDS: Folic Acid 1 MG TAB PO SCH (09:08)
[2017-11-05] MEDS: Tamsulosin HCl 0.4 MG CAP PO SCH (09:09)
[2017-11-05] MEDS: Dutasteride 0.5 MG CAP PO SCH (09:09)
[2017-11-05] MEDS: Torsemide 20 MG TAB PO SCH (09:09)
[2017-11-05] MEDS: Mometasone/Formoterol 60 PUFF AER INH SCH ×2 (09:10→22:00)
[2017-11-05] MEDS: Enoxaparin Sodium 40 MG/0.4 ML SYRINGE SC SCH (09:10)
[2017-11-06 05:25] LABS: Hemoglobin 10.9 g/dL (14.0-18.0); Platelet Count 255 thou/uL (130-400)
[2017-11-06 05:33] LABS: Calc. Creatinine Clearance 71 mL/min (70-130); Estimated GFR-MDRD Greater than 90
[2017-11-06] MEDS: Levothyroxine Sodium 50 MCG TAB PO SCH (06:10)
[2017-11-06] MEDS: Enoxaparin Sodium 40 MG/0.4 ML SYRINGE SC SCH (15:38)
[2017-11-06] MEDS: Dutasteride 0.5 MG CAP PO SCH (15:38)
[2017-11-06] MEDS: Folic Acid 1 MG TAB PO SCH (15:39)
[2017-11-06] MEDS: Saccharomyces boulardii 250 MG CAP PO SCH (15:39)
[2017-11-06] MEDS: Mometasone/Formoterol 60 PUFF AER INH SCH ×2 (15:39→20:15)
[2017-11-06] MEDS: Torsemide 20 MG TAB PO SCH (15:40)
[2017-11-06] MEDS: Tamsulosin HCl 0.4 MG CAP PO SCH (15:40)
[2017-11-07] MEDS: Levothyroxine Sodium 50 MCG TAB PO SCH (06:21)
[2017-11-07] MEDS: Mometasone/Formoterol 60 PUFF AER INH SCH ×2 (08:39→20:13)
[2017-11-07] MEDS: Enoxaparin Sodium 40 MG/0.4 ML SYRINGE SC SCH (08:43)
[2017-11-07] MEDS: Saccharomyces boulardii 250 MG CAP PO SCH (08:50)
[2017-11-07] MEDS: Folic Acid 1 MG TAB PO SCH (08:50)
[2017-11-07] MEDS: Torsemide 20 MG TAB PO SCH (08:50)
[2017-11-07] MEDS: Dutasteride 0.5 MG CAP PO SCH (08:51)
[2017-11-07] MEDS: Tamsulosin HCl 0.4 MG CAP PO SCH (08:51)
[2017-11-08 05:35] LABS: Calc. Creatinine Clearance 72 mL/min (70-130); Estimated GFR-MDRD Greater than 90; Hemoglobin 10.1 g/dL (14.0-18.0); Platelet Count 257 thou/uL (130-400)
[2017-11-08] MEDS: Levothyroxine Sodium 50 MCG TAB PO SCH (06:06)
[2017-11-08] MEDS: Saccharomyces boulardii 250 MG CAP PO SCH (08:55)
[2017-11-08] MEDS: Tamsulosin HCl 0.4 MG CAP PO SCH (08:55)
[2017-11-08] MEDS: Dutasteride 0.5 MG CAP PO SCH (08:56)
[2017-11-08] MEDS: Folic Acid 1 MG TAB PO SCH (08:56)
[2017-11-08] MEDS: traMADol HCl 50 MG TAB PO PRN ×2 (08:59→17:26)
[2017-11-08] MEDS: Enoxaparin Sodium 40 MG/0.4 ML SYRINGE SC SCH (09:01)
[2017-11-08] MEDS: Mometasone/Formoterol 60 PUFF AER INH SCH ×2 (09:01→19:51)
[2017-11-08] MEDS: Torsemide 20 MG TAB PO SCH (09:02)
[2017-11-08 12:41] VITALS: BMI 23.3
[2017-11-08] MEDS ORDERED: Torsemide 20 MG TAB PO PRN (16:42)
[2017-11-08] MEDS: Acetaminophen 500 MG TAB PO PRN (19:58)
[2017-11-09] MEDS: Levothyroxine Sodium 50 MCG TAB PO SCH (05:56)
[2017-11-09] MEDS: Mometasone/Formoterol 60 PUFF AER INH SCH ×2 (08:23→20:21)
[2017-11-09] MEDS: Artificial Tear Sol 15 ML BOT EA EYE PRN (08:23)
[2017-11-09] MEDS: Dutasteride 0.5 MG CAP PO SCH (08:28)
[2017-11-09] MEDS: Saccharomyces boulardii 250 MG CAP PO SCH (08:29)
[2017-11-09] MEDS: Folic Acid 1 MG TAB PO SCH (08:29)
[2017-11-09] MEDS: Tamsulosin HCl 0.4 MG CAP PO SCH (08:29)
[2017-11-09] MEDS: Enoxaparin Sodium 40 MG/0.4 ML SYRINGE SC SCH (08:29)
[2017-11-10 05:48] LABS: Hemoglobin 10.2 g/dL (14.0-18.0); Platelet Count 266 thou/uL (130-400)
[2017-11-10 05:57] LABS: Calc. Creatinine Clearance 74 mL/min (70-130); Estimated GFR-MDRD Greater than 90
[2017-11-10] MEDS: Levothyroxine Sodium 50 MCG TAB PO SCH (06:03)
[2017-11-10] MEDS: Tamsulosin HCl 0.4 MG CAP PO SCH (08:13)
[2017-11-10] MEDS: Artificial Tear Sol 15 ML BOT EA EYE PRN (08:14)
[2017-11-10] MEDS: Mometasone/Formoterol 60 PUFF AER INH SCH ×2 (08:14→20:04)
[2017-11-10] MEDS: Saccharomyces boulardii 250 MG CAP PO SCH (08:14)
[2017-11-10] MEDS: Dutasteride 0.5 MG CAP PO SCH (08:14)
[2017-11-10] MEDS: Folic Acid 1 MG TAB PO SCH (08:14)
[2017-11-10] MEDS: Enoxaparin Sodium 40 MG/0.4 ML SYRINGE SC SCH (08:17)
[2017-11-10] MEDS: Acetaminophen 500 MG TAB PO PRN (20:07)
[2017-11-10] MEDS: traMADol HCl 50 MG TAB PO PRN (20:07)
[2017-11-11 06:03] VITALS: BP 118/59; TEMP 98.6
[2017-11-11] MEDS: Levothyroxine Sodium 50 MCG TAB PO SCH (06:03)
[2017-11-11] MEDS: Dutasteride 0.5 MG CAP PO SCH (08:29)
[2017-11-11] MEDS: Enoxaparin Sodium 40 MG/0.4 ML SYRINGE SC SCH (08:29)
[2017-11-11] MEDS: Tamsulosin HCl 0.4 MG CAP PO SCH (08:29)
[2017-11-11] MEDS: Folic Acid 1 MG TAB PO SCH (08:29)
[2017-11-11] MEDS: Mometasone/Formoterol 60 PUFF AER INH SCH (08:29)
[2017-11-11] MEDS: Saccharomyces boulardii 250 MG CAP PO SCH (08:30)
== END 2017-11-11 16:57 | disposition home health service (06) | DRG 559 ==
LOC: BURMED 14:50 → UNDOADMIN 14:50 → BURMED 10-01 11:55
PROVIDERS: ADMIT Family Medicine; ATTEND Family Medicine
DX: S72.8X1D Other fracture of right femur, subsequent encounter for closed fracture with routine healing (principal); J18.9 Pneumonia, unspecified organism; E46 Unspecified protein-calorie malnutrition; I95.9 Hypotension, unspecified; J44.9 Chronic obstructive pulmonary disease, unspecified; I70.1 Atherosclerosis of renal artery; K26.9 Duodenal ulcer, unspecified as acute or chronic, without hemorrhage or perforation; D62 Acute posthemorrhagic anemia; S27.0XXD Traumatic pneumothorax, subsequent encounter; I10 Essential (primary) hypertension; S62.101D Fracture of unspecified carpal bone, right wrist, subsequent encounter for fracture with routine healing; S62.102D Fracture of unspecified carpal bone, left wrist, subsequent encounter for fracture with routine healing; S22.32XD Fracture of one rib, left side, subsequent encounter for fracture with routine healing; V49.60XD Unspecified car occupant injured in collision with unspecified motor vehicles in traffic accident, subsequent encounter; E03.9 Hypothyroidism, unspecified; K21.0 Gastro-esophageal reflux disease with esophagitis; Z87.891 Personal history of nicotine dependence; Z68.23 Body mass index [BMI] 23.0-23.9, adult; Y95 Nosocomial condition; S82.302D Unspecified fracture of lower end of left tibia, subsequent encounter for closed fracture with routine healing; R35.0 Frequency of micturition; S06.0X9D Concussion with loss of consciousness of unspecified duration, subsequent encounter; S27.322D Contusion of lung, bilateral, subsequent encounter; S22.20XD Unspecified fracture of sternum, subsequent encounter for fracture with routine healing; K59.00 Constipation, unspecified
CPT/HCPCS: 36415; 71045; 71046; 80048; 80053; 80202; 82565; 83880; 85014; 85018; 85025; 85049; 86140; 87040; 94640; 94664; A4216; G0283-GP; G8978-GP-CK; G8978-GP-CM; G8979-GP-CJ; G8987-GO-CJ; G8987-GO-CM; G8988-GO-CI; G8988-GO-CJ; J1650; J2543; J3370; J7050; J7506; J7620; Q0162